=== PATIENT | female | born 1985 | race African-American/Black ===

== ENCOUNTER 2017-05-31 08:06 | Emergency (ER) | payer SELFPAY ==
[2017-05-31] MEDS ORDERED: cloNIDine HCl 0.1 MG TAB ONE (08:42)
[2017-05-31] MEDS ORDERED: FENTANYL CITR 100 MCG/2 ML ONE (08:43)
[2017-05-31 09:47] LABS: Urine Bacteria 20-50 /HPF (<20); Urine Culture Reflex Order NOT NEEDED; Urine RBC <5 /HPF (NONE SEEN)
[2017-05-31 09:48] LABS: Urine Mucus SLIGHT /HPF (NONE SEEN)
--- NOTE | 2017-05-31 10:11 | RAD REPORT ---
EXAM DESCRIPTION: CT - Stone Protocol - 05/31/2017 9:46 am CLINICAL HISTORY: Flank pain. COMPARISON: 09/15/2016 TECHNIQUE: Axial images were obtained without oral or IV contrast. Lack of contrast limits solid org an and vascular assessment. The [id number] spans the entirety of the system partially obscuring uppermost abdomen and lung bases. Coronal reformatted images were obtained and reviewed. All CT scans are performed using dose optimization technique as appropriate and may include automated exposure control or mA/KV adjustment according to patient size. FINDINGS: The lower lung chin are clear. Small hiatal hernia. Imaged portions of the liver and spleen show no suspicious findings on non-contrast imaging. The panc reas and adrenal glands are normal. No pathologic lymphadenopathy in the abdomen or pelvis. No urinary tract stones or obstructive uropathy. No bowel obstruction, free air, free fluid or abscess. Normal appendix noted. Chronic L5-S1 spondylolysis. Cervix appears dilated, similar to comparative study. IMPRESSION: No urinary tract stones or obstructive uropathy. Dilated cervix, similar to prior study. Correlation with clinical exam findings and/or direct visuali zation is suggested.
[2017-05-31 10:18] LABS: Urine Blood TRACE (NEG); Urine Glucose NEGATIVE (NEG); Urine Protein 2+ (NEG)
--- NOTE | 2017-05-31 10:34 | EDPHYS ---
Physician Documentation [facility] Name: Elsy Lux Age: 32 yrs Sex: Female : 1985 Arrival Date: 05/31/2017 Time: 08:07 Bed 13 Private MD: ED Physician Prince Harden HPI: 05/31 08:15 This 32 yrs old Black Female presents to ER via Unassigned with complaints of Abdominal snw Pain. 08:15 The patient presents with abdominal pain in the lower abdomen. Onset: The snw symptoms/episode began/occurred suddenly, 3 day(s) ago, and became persistent. The symptoms do not radiate. Associated signs and symptoms: none. The symptoms are described as crampy. Severity of pain: At its worst the pain was moderate. The patient has not experienced similar symptoms in the past. The patient has not recently seen a physician. lmp 6 years ago. 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 stated, "I haven't had a period for the last 6 years, I'm not sure why." rb1 Historical: - Allergies: 08:18 NKA; iw - Home Meds: 08:10 None [Active]; rb1 - PMHx: 08:18 Hypertension; Pre-Diabetes; iw - PSHx: 08:18 None; iw - Immunization history:: Adult Immunizations up to date. - Social history:: Smoking status: Patient/guardian denies using tobacco. ROS: 08:15 Constitutional: Negative for fever, chills, and weight loss, Eyes: Negative for injury, snw pain, redness, and discharge, ENT: Negative for injury, pain, and discharge, Neck: Negative for injury, pain, and swelling, Cardiovascular: Negative for chest pain, palpitations, and edema, Respiratory: Negative for shortness of breath, cough, wheezing, and pleuritic chest pain, Back: Negative for injury and pain, : Negative for injury, bleeding, discharge, and swelling, MS/Extremity: Negative for injury and deformity, Skin: Negative for injury, rash, and discoloration, Neuro: Negative for headache, weakness, numbness, tingling, and seizure. 08:15 Abdomen/GI: Positive for abdominal pain, abdominal cramps. Exam: 08:15 Head/Face: Normocephalic, atraumatic. Eyes: Pupils equal round and reactive to light, snw extra-ocular motions intact. Lids and lashes normal. Conjunctiva and sclera are non-icteric and not injected. Cornea within normal limits. Periorbital areas with no swelling, redness, or edema. ENT: Nares patent. No nasal discharge, no septal abnormalities noted. Tympanic membranes are normal and external auditory canals are clear. Oropharynx with no redness, swelling, or masses, exudates, or evidence of obstruction, uvula midline. Mucous membranes moist. Neck: Trachea midline, no thyromegaly or masses palpated, and no cervical lymphadenopathy. Supple, full range of motion without nuchal rigidity, or vertebral point tenderness. No Meningismus. Chest/axilla: Normal chest wall appearance and motion. Nontender with no deformity. No lesions are appreciated. Cardiovascular: Regular rate and rhythm with a normal S1 and S2. No gallops, murmurs, or rubs. Normal PMI, no JVD. No pulse deficits. Respiratory: Lungs have equal breath sounds bilaterally, clear to auscultation and percussion. No rales, rhonchi or wheezes noted. No increased work of breathing, no retractions or nasal flaring. Back: No spinal tenderness. No costovertebral tenderness. Full range of motion. Skin: Warm, dry with normal turgor. Normal color with no rashes, no lesions, and no evidence of cellulitis. MS/ Extremity: Pulses equal, no cyanosis. Neurovascular intact. Full, normal range of motion. Neuro: Awake and alert, GCS 15, oriented to person, place, time, and situation. Cranial nerves II-XII grossly intact. Motor strength 5/5 in all extremities. Sensory grossly intact. Cerebellar exam normal. Normal gait. Psych: Awake, alert, with orientation to person, place and time. Behavior, mood, and affect are within normal limits. 08:15 Constitutional: The patient appears anxious, obese, restless. 08:15 Abdomen/GI: Inspection: abdomen appears normal, Bowel sounds: normal, Palpation: moderate abdominal tenderness, in the suprapubic area. Vital Signs: 08:24 BP 184 / 122; Pulse 95; Resp 20; Temp 98.3(O); Pulse Ox 99% on R/A; Weight 104.33 kg; ph Height 5 ft. 4 in. (162.56 cm); Pain 10/10; 08:56 BP 176 / 98; Pulse 78; Resp 17; Pulse Ox 99% on R/A; rb1 09:36 BP 158 / 81; Pulse 82; Resp 19; Pulse Ox 99% on R/A; rb1 10:30 BP 158 / 81; Pulse 75; Resp 19; Pulse Ox 99% on R/A; rb1 11:08 BP 161 / 95; Pulse 79; Resp 18; Pulse Ox 99% on R/A; Pain 8/10; rb1 08:24 Body Mass Index 39.48 (104.33 kg, 162.56 cm) ph MDM: 08:14 Patient medically screened. snw 10:35 Data reviewed: vital signs, nurses notes. Data interpreted: Pulse oximetry: on room air snw is 99 %. Interpretation: normal. Counseling: I had a detailed discussion with the patient and/or guardian regarding: the historical points, exam findings, and any diagnostic results supporting the discharge/admit diagnosis, the presence of at least one elevated blood pressure reading (>120/80) during this emergency department visit, lab results, radiology results, the need for outpatient follow up, to return to the emergency department if symptoms worsen or persist or if there are any questions or concerns that arise at home. Special discussion: Based on the history and exam findings, there is no indication for further emergent testing or inpatient evaluation. 05/31 08:12 Order name: Urine Culture snw 05/31 08:12 Order name: Urine Microscopic Only; Complete Time: 09:59 snw 05/31 09:00 Order name: Urine Culture EDSC 05/31 09:03 Order name: Urine Dipstick--Ancillary (enter results); Complete Time: 10:30 em1 05/31 09:19 Order name: CT Stone Protocol; Complete Time: 10:16 snw 05/31 09:38 Order name: Urine --Ancillary (enter results); Complete Time: 10:30 bd 05/31 08:12 Order name: Urine Test (obtain specimen); Complete Time: 08:56 snw 05/31 08:12 Order name: Urine Dipstick-Ancillary (obtain specimen); Complete Time: 08:56 snw Administered Medications: 08:42 Drug: cloNIDine 0.2 mg Route: PO; rb1 09:37 Follow up: Response: No adverse reaction; Blood pressure is lowered rb1 08:50 Drug: fentaNYL (PF) 50 mcg {Note: Waited for the pt. to give a urine specimen.} Route: rb1 IM; Site: left gluteus; 09:37 Follow up: Response: No adverse reaction; Pain is unchanged, physician notified rb1 11:04 Drug: [place] 10 mg-325 mg 1 tabs Route: PO; rb1 11:20 Follow up: Response: No adverse reaction rb1 11:04 Drug: Bentyl 20 mg Route: PO; rb1 11:20 Follow up: Response: No adverse reaction; Pain is decreased rb1 11:05 Drug: Rocephin (cefTRIAXone) 1 grams Route: IM; Site: right gluteus; rb1 11:20 Follow up: Response: No adverse reaction rb1 Disposition: 18:07 Co-signature as Attending Physician, Prince Harden MD Available for consultation at ps1 all times. . Disposition: 05/31/17 10:33 Discharged to Home. Impression: Abdominal and pelvic pain, Urinary tract infection, site not specified. - Condition is Stable. - Discharge Instructions: Urinary Tract Infection, Abdominal Pain, Women, Hypertension, Yjda-am-Oasu. - Prescriptions for Bentyl 20 mg Oral Tablet - take 1 tablet by ORAL route every 6 hours As needed; 20 tablet. Diclofenac Sodium 75 mg Oral Tablet Sustained Release - take 1 tablet by ORAL route 2 times per day; 30 tablet. Augmentin 875- 125 mg Oral Tablet - take 1 tablet by ORAL route every 12 hours for 10 days; 20 tablet. - Work release form, Medication Reconciliation Form, Thank You Letter, Antibiotic Education, Prescription Opioid Use form. - Follow up: Private Physician; When: 2 - 3 days; Reason: If symptoms return, Recheck today's complaints, Continuance of care, Re-evaluation by your physician. Follow up: Emergency Department; When: As needed; Reason: Worsening of condition. Signatures: Dispatcher [employer] Dorothy Quinones, MARYELLEN-C SALES REPRESENTATIVE METALS-Csnw Jackie Villa RN RN Marsha Tavares RN RN [facility] Julius, [facility] Prince Harden MD MD ps1
--- NOTE | 2017-05-31 10:34 | ER ---
Nurse's Notes [facility] Name: Elsy Lux Age: 32 yrs Sex: Female : 1985 Arrival Date: 05/31/2017 Time: 08:07 Bed 13 Private MD: Diagnosis: Abdominal and pelvic pain;Urinary tract infection, site not specified Presentation: 05/31 08:15 Presenting complaint: Patient states: has had lower ad pain X 3 days, denies n/v/d, iw denies pain or burning with urination, feels like constant cramping, 10/10, no fever. Transition of care: patient was not received from another setting of care. Onset of symptoms was May 28, 2017. Initial Sepsis Screen: Does the patient meet any 2 criteria? No. Patient's initial sepsis screen is negative. Does the patient have a suspected source of infection? No. Patient initial sepsis screen negative. Care prior to arrival: None. 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 stated, "I haven't had a period for the last 6 years, I'm not sure why." rb1 Historical: - Allergies: 08:18 NKA; iw - Home Meds: 08:10 None [Active]; rb1 - PMHx: 08:18 Hypertension; Pre-Diabetes; iw - PSHx: 08:18 None; iw - Immunization history:: Adult Immunizations up to date. - Social history:: Smoking status: Patient/guardian denies using tobacco. Screenin:10 Abuse screen: Denies threats or abuse. Nutritional screening: No deficits noted. rb1 Tuberculosis screening: No symptoms or risk factors identified. Fall Risk None identified. Assessment: 08:10 General: Appears uncomfortable, obese, Behavior is calm, cooperative, Denies fever. rb1 Pain: Complains of pain in suprapubic area Pain currently is 10 out of 10 on a pain scale. Quality of pain is described as crampy, Pain began x 3 days ago. Neuro: Level of Consciousness is awake, alert, obeys commands, Oriented to person, place, time, situation. Cardiovascular: Capillary refill < 3 seconds is brisk in bilateral fingers. Respiratory: Airway is patent Respiratory effort is even, unlabored, Respiratory pattern is regular, symmetrical. GI: Bowel sounds present X 4 quads. Abd is soft Abdomen is tender to palpation in suprapubic area Reports vomiting, x 1 this morning. : No signs and/or symptoms were reported regarding the genitourinary system. Derm: Skin is dry, Skin is normal, Skin temperature is warm. Musculoskeletal: Range of motion: intact in all extremities. 08:48 Reassessment: No changes from previously documented assessment. Patient and/or family rb1 updated on plan of care and expected duration. Pain level reassessed. Patient is alert, oriented x 3, equal unlabored respirations, skin warm/dry/pink. 09:46 Reassessment: Patient appears in no apparent distress at this time. Patient and/or rb1 family updated on plan of care and expected duration. Pain level reassessed. Patient is alert, oriented x 3, equal unlabored respirations, skin warm/dry/pink. Provider notified that pt. is requesting pain medication. 10:33 Reassessment: Patient appears in no apparent distress at this time. No changes from rb1 previously documented assessment. 11:06 Reassessment: Patient appears in no apparent distress at this time. Patient and/or rb1 family updated on plan of care and expected duration. Pain level reassessed. Patient is alert, oriented x 3, equal unlabored respirations, skin warm/dry/pink. Discharge on hold due to Rocephin shot, monitoring pt. for ADR. Vital Signs: 08:24 BP 184 / 122; Pulse 95; Resp 20; Temp 98.3(O); Pulse Ox 99% on R/A; Weight 104.33 kg; ph Height 5 ft. 4 in. (162.56 cm); Pain 10/10; 08:56 BP 176 / 98; Pulse 78; Resp 17; Pulse Ox 99% on R/A; rb1 09:36 BP 158 / 81; Pulse 82; Resp 19; Pulse Ox 99% on R/A; rb1 10:30 BP 158 / 81; Pulse 75; Resp 19; Pulse Ox 99% on R/A; rb1 11:08 BP 161 / 95; Pulse 79; Resp 18; Pulse Ox 99% on R/A; Pain 8/10; rb1 08:24 Body Mass Index 39.48 (104.33 kg, 162.56 cm) ph ED Course: 08:07 Patient arrived in ED. as 08:10 Patient has correct armband on for positive identification. Bed in low position. Call rb1 light in reach. Side rails up X 1. Pulse ox on. NIBP on. Warm blanket given. 08:10 Arm band placed on right wrist. rb1 08:11 Dorothy Cano FNP-C [facility]. snw 08:11 Prince Harden MD is Attending Physician. snw 08:18 Triage completed. iw 08:22 Marsha Tavares, RN is Primary Nurse. rb1 09:45 CT completed. Patient tolerated procedure well. Patient moved to CT via wheelchair. Patient moved back from CT. 09:45 CT Stone Protocol In Process Unspecified. EDMS 11:20 No provider procedures requiring assistance completed. Patient did not have IV access rb1 during this emergency room visit. Administered Medications: 08:42 Drug: cloNIDine 0.2 mg Route: PO; rb1 09:37 Follow up: Response: No adverse reaction; Blood pressure is lowered rb1 08:50 Drug: fentaNYL (PF) 50 mcg {Note: Waited for the pt. to give a urine specimen.} Route: rb1 IM; Site: left gluteus; 09:37 Follow up: Response: No adverse reaction; Pain is unchanged, physician notified rb1 11:04 Drug: [place] 10 mg-325 mg 1 tabs Route: PO; rb1 11:20 Follow up: Response: No adverse reaction rb1 11:04 Drug: Bentyl 20 mg Route: PO; rb1 11:20 Follow up: Response: No adverse reaction; Pain is decreased rb1 11:05 Drug: Rocephin (cefTRIAXone) 1 grams Route: IM; Site: right gluteus; rb1 11:20 Follow up: Response: No adverse reaction rb1 Outcome: 10:33 Discharge ordered by . snw 11:22 Patient left the ED. rb1 11:22 Discharged to home ambulatory, with family. rb1 11:22 Condition: stable 11:22 Discharge instructions given to patient, Instructed on discharge instructions, follow up and referral plans. medication usage, Demonstrated understanding of instructions, follow-up care, medications, Prescriptions given X 3. Signatures: Dispatcher [employer] EDMS Dorothy Cano FNP-C BIOLOGICAL TECHNICAL OFFICER-Csnw China Herzog Amelia as Williams, Irene, RN RN Sandra Finn RN RN Marsha Tavares RN RN rb1 [facility] [place] [facility] Corrections: (The following items were deleted from the chart) 08:29 08:24 BP 184 / 122; Pulse 95bpm; Resp 20bpm; Pulse Ox 99% RA; 104.33 kg; Height 5 ft. 4 ph in.; BMI: 39.4; Pain 10/10; ph 11:14 08:58 Reassessment: No changes from previously documented assessment. Patient and/or rb1 family updated on plan of care and expected duration. Pain level reassessed. Patient is alert, oriented x 3, equal unlabored respirations, skin warm/dry/pink. rb1 11:14 11:12 Reassessment: Patient appears in no apparent distress at this time. Patient rb1 and/or family updated on plan of care and expected duration. Pain level reassessed. Patient is alert, oriented x 3, equal unlabored respirations, skin warm/dry/pink. Discharge on hold due to Rocephin shot, monitoring pt. for ADR. [facility] 11:38 11:37 Patient left the ED. 5 [facility]
[2017-05-31] MEDS ORDERED: CEFTRIAXONE 1000 MG/VIAL ONE (11:02)
[2017-05-31] MEDS ORDERED: DICYCLOMINE HCL 10 MG CAP ONE (11:02)
[2017-05-31] MEDS ORDERED: HYDROCODONE/APAP 10/325 TAB ONE (11:02)
[2017-05-31 11:48] VITALS: O2SAT 99
[2017-05-31 11:50] VITALS: TEMP 98.3
[2017-05-31 11:54] VITALS: BP 161/95
== END 2017-05-31 11:37 | disposition home or self-care (01) ==
LOC: ER 08:06
DX: N39.0 Urinary tract infection, site not specified (principal); I10 Essential (primary) hypertension
CPT/HCPCS: 74176; 76377; 81003; 81015; 81025; 87086; 87088; 96372; 99284; J3010

== ENCOUNTER 2017-06-01 10:48 | Emergency (ER) | payer OTHER, SELFPAY ==
[2017-06-01 12:26] LABS: Urine Blood TRACE (NEG); Urine Glucose NEGATIVE (NEG); Urine Protein 2+ (NEG); Urine pH 6.5 (5.0-7.0)
[2017-06-01] MEDS ORDERED: ONDANSETRON 4 MG/2 ML VIAL ONE ×2 (14:23→15:41)
[2017-06-01] MEDS ORDERED: KETOROLAC 30 MG/ML INJ ONE (14:23)
[2017-06-01] MEDS ORDERED: NA CHLORIDE 0.9% 1,000 ML ONE (14:23)
[2017-06-01] MEDS ORDERED: MORPHINE 10 MG/ML VIAL ONE (15:41)
[2017-06-01 16:52] LABS: Bicarbonate 25 mEq/L (21-31); Glucose Level 131 mg/dL (65-120); Lipase 46 U/L (22-51); Potassium 3.4 mEq/L (3.6-5.0); Sodium Level 136 mEq/L (135-145)
[2017-06-01 16:55] LABS: ALT/SGPT 26 IU/L (10-60); AST/SGOT 29 IU/L (10-42); Albumin 4.3 g/dL (3.2-5.5); Alkaline Phosphatase 62 IU/L (42-121); BUN Blood Urea Nitrogen 10 mg/dL (6-20); Bilirubin Total 0.2 mg/dL (0.3-1.2)
[2017-06-01 17:26] LABS: Absolute Lymphocytes (CBC) 1.9 K/uL (0.7-4.9); Absolute Monocytes 0.7 K/uL (0.1-1.3); Absolute Neutrophil 10.9 K/uL (1.8-8.0); Basophils % 0.4 % (0-1.3); Hematocrit 34.7 % (36.0-45.0); Lymphocytes % 13.8 % (15.3-44.8); MCV 74.1 fL (80-100); MPV 7.9 fL (7.6-11.3); Monocytes % 5.2 % (3.3-12.3); RBC Red Blood Cell Count 4.68 M/uL (3.86-4.86)
--- NOTE | 2017-06-01 18:14 | EDPHYS ---
Physician Documentation [facility] Name: Elsy Lux Age: 32 yrs Sex: Female : 1985 Arrival Date: 06/01/2017 Time: 10:51 Bed 28 Private MD: ED Physician Prince Harden HPI: 06/01 18:16 This 32 yrs old Black Female presents to ER via Ambulatory with complaints of Abdominal ps1 Pain, Vomiting. 18:16 The patient presents to the emergency department with nausea, vomiting. Onset: The ps1 symptoms/episode began/occurred this week. Possible causes: antibiotics, penicillin, amoxicillin. Associated signs and symptoms: Pertinent positives: abdominal pain, nausea, Pertinent negatives: fever, vomiting. Severity of symptoms: At their worst the symptoms were moderate in the emergency department the symptoms have improved. The patient has experienced a previous episode. The patient has been recently seen at the [facility] Emergency Department, yesterday. CT performed and demonstrated an enlarged cervix. referral to [facility]. Given augmentin. Now worsening abd pain, nausea, vomting. . 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 - Social history:: Smoking status: Patient/guardian denies using tobacco, never smoked. ROS: 18:16 Constitutional: Negative for fever, chills, and weight loss, Eyes: Negative for injury, ps1 pain, redness, and discharge, Cardiovascular: Negative for chest pain, palpitations, and edema, Respiratory: Negative for shortness of breath, cough, wheezing, and pleuritic chest pain. 18:16 Back: Negative for injury and pain, MS/Extremity: Negative for injury and deformity, Skin: Negative for injury, rash, and discoloration, Neuro: Negative for headache, weakness, numbness, tingling, and seizure. 18:16 Abdomen/GI: Positive for abdominal pain, nausea and vomiting. Exam: 18:16 Constitutional: This is a well developed, well nourished patient who is awake, alert, ps1 and in no acute distress. Head/Face: Normocephalic, atraumatic. Chest/axilla: Normal chest wall appearance and motion. Nontender with no deformity. No lesions are appreciated. Cardiovascular: Regular rate and rhythm. No gallops, murmurs, or rubs. Normal PMI, no JVD. No pulse deficits. Respiratory: Lungs have equal breath sounds bilaterally, clear to auscultation and percussion. No rales, rhonchi or wheezes noted. No increased work of breathing, no retractions or nasal flaring. Abdomen/GI: Soft, non-tender, with normal bowel sounds. No distension or tympany. No guarding or rebound. No evidence of tenderness throughout. Back: No spinal tenderness. No costovertebral tenderness. Full range of motion. MS/ Extremity: Pulses equal, no cyanosis. Neurovascular intact. Full, normal range of motion. Neuro: Awake and alert, GCS 15, oriented to person, place, time, and situation. Cranial nerves II-XII grossly intact. Sensory grossly intact. Psych: Awake, alert, with orientation to person, place and time. Behavior, mood, and affect are within normal limits. Vital Signs: 11:07 BP 182 / 112; Pulse 80; Resp 18; Temp 98.7(TE); Pulse Ox 97% on R/A; Weight 104.33 kg; hj Height 5 ft. 4 in. (162.56 cm); Pain 10/10; 14:36 BP 177 / 97; Pulse 79; Resp 20; Pulse Ox 95% on R/A; tl3 16:03 BP 148 / 84; Pulse 72; Resp 18; Pulse Ox 99% on R/A; tl3 16:47 BP 147 / 76; Pulse 78; Resp 18; Pulse Ox 100% ; tl3 17:51 BP 146 / 71; Pulse 75; Resp 18; Pulse Ox 100% on R/A; tl3 11:07 Body Mass Index 39.48 (104.33 kg, 162.56 cm) hj MDM: 14:04 Patient medically screened. ps1 18:16 Data reviewed: vital signs, nurses notes, lab test result(s), CBC, white blood cell ps1 count. ED course: pain and symptoms improved after medications. Will change medications to cipro/flagyl and dc with zofran. Stable. . 06/01 11:38 Order name: Urine Dipstick--Ancillary (enter results); Complete Time: 12:34 mw2 06/01 11:38 Order name: Urine --Ancillary (enter results); Complete Time: 12:34 mw2 18 15:39 Order name: CBC with Diff; Complete Time: 17:43 ps1 06/01 15:39 Order name: CMP; Complete Time: 17:06 ps1 06/01 15:39 Order name: Lipase; Complete Time: 17:06 ps1 Administered Medications: 14:15 Drug: NS 0.9% 1000 ml Route: IV; Rate: 1 bolus; Infused Over: 1 hrs; Site: right tl3 antecubital; Delivery: Primary tubing; 16:08 Follow up: IV Status: Completed infusion; IV Intake: 1000ml tl3 14:18 Drug: Zofran 4 mg Route: IVP; Infused Over: 2 mins; Site: right antecubital; tl3 16:49 Follow up: Response: No adverse reaction; Nausea is decreased tl3 14:20 Drug: TORadol 30 mg Route: IVP; Infused Over: 3 mins; Site: right antecubital; tl3 15:00 Follow up: Response: No adverse reaction; Pain is unchanged, physician notified tl3 16:07 Drug: morphine 4 mg Route: IVP; Infused Over: 3 mins; Site: right antecubital; tl3 16:48 Follow up: Response: No adverse reaction; Marked relief of symptoms; Pain is decreased tl3 16:07 Drug: Zofran 4 mg Route: IVP; Infused Over: 2 mins; Site: right antecubital; tl3 16:48 Follow up: Response: No adverse reaction tl3 Disposition: 06/01/17 18:13 Discharged to Home. Impression: Abdominal and pelvic pain, Nausea and vomiting. - Condition is Stable. - Prescriptions for Bentyl 20 mg Oral Tablet - take 1 tablet by ORAL route every 6 hours As needed; 20 tablet. Zofran 4 mg Oral Tablet - take 1 tablet by ORAL route every 12 hours As needed; 20 tablet. Cipro 500 mg Oral Tablet - take 1 tablet by ORAL route every 12 hours for 10 days; 20 tablet. Flagyl 500 mg Oral Tablet - take 1 tablet by ORAL route every 12 hours for 7 days; 14 tablet. - Medication Reconciliation Form, Thank You Letter, Antibiotic Education, Prescription Opioid Use form. - Follow up: Darcie Davis MD; When: 48 Hours; Reason: Re-evaluation by your physician. Follow up: Emergency Department; When: As needed; Reason: Fever > 102 F, Trouble breathing, Worsening of condition. - Problem is an ongoing problem. - Symptoms have worsened. Signatures: Dispatcher [employer] EDMS Dorothy Cano, SPLICER OPERATOR-C SPLICER OPERATOR-Csnw Serafin Teresa, RN RN Prince Coreas MD MD ps1 Glory Kim RN RN tl3
--- NOTE | 2017-06-01 18:14 | ER ---
Nurse's Notes [facility] Name: Elsy Lux Age: 32 yrs Sex: Female : 1985 Arrival Date: 06/01/2017 Time: 10:51 Bed 28 Private MD: Diagnosis: Abdominal and pelvic pain;Nausea and vomiting Presentation: 06/01 11:00 Presenting complaint: Patient states: was here yesterday, for abdominal pain and was hj D/C'd with Rx, but not able to take it and hold it down;. Transition of care: patient was not received from another setting of care. Onset of symptoms was June 01, 2017. Care prior to arrival: None. 11:00 Method Of Arrival: Ambulatory 11:00 Acuity: SOBIA 3 hj 18:43 Initial Sepsis Screen: Does the patient meet any 2 criteria? No. Patient's initial tl3 sepsis screen is negative. Does the patient have a suspected source of infection? No. Patient's initial sepsis screen is negative. Triage Assessment: 11:06 General: Appears in no apparent distress. uncomfortable, Behavior is calm, cooperative, hj appropriate for age. Pain: Complains of pain in abdomen. GI: Reports lower abdominal pain. 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 - Social history:: Smoking status: Patient/guardian denies using tobacco, never smoked. Screenin:56 Abuse screen: Denies threats or abuse. Nutritional screening: No deficits noted. tl3 Tuberculosis screening: No symptoms or risk factors identified. Fall Risk None identified. Assessment: 11:06 GI: Bowel sounds Abd is soft Abdomen is tender to palpation. hj 13:56 General: Appears distressed, uncomfortable, obese, well groomed, well developed, well tl3 nourished, Behavior is cooperative, appropriate for age, anxious, restless. Pain: Complains of pain in suprapubic Pain currently is 10 out of 10 on a pain scale. Neuro: Level of Consciousness is awake, alert, obeys commands, Oriented to person, place, time, situation, Appropriate for age. Cardiovascular: Heart tones S1 S2 present Capillary refill < 3 seconds in bilateral fingers. Respiratory: Airway is patent Trachea midline Respiratory effort is even, unlabored, Respiratory pattern is regular, symmetrical, Breath sounds are clear bilaterally. GI: Bowel sounds present X 4 quads. Abd is soft Abdomen is tender to palpation in suprapubic area. : No signs and/or symptoms were reported regarding the genitourinary system. EENT: No signs and/or symptoms were reported regarding the EENT system. Derm: No signs and/or symptoms reported regarding the dermatologic system. Musculoskeletal: No signs and/or symptoms reported regarding the musculoskeletal system. 15:34 Reassessment: Patient and/or family updated on plan of care and expected duration. Pain tl3 level reassessed. Patient is alert, oriented x 3, equal unlabored respirations, skin warm/dry/pink. pt resting. 16:03 Reassessment: No changes from previously documented assessment. Patient and/or family tl3 updated on plan of care and expected duration. Pain level reassessed. Patient is alert, oriented x 3, equal unlabored respirations, skin warm/dry/pink. pain had returned, MD notified. 16:47 Reassessment: Patient appears in no apparent distress at this time. No changes from tl3 previously documented assessment. Patient and/or family updated on plan of care and expected duration. Pain level reassessed. Patient is alert, oriented x 3, equal unlabored respirations, skin warm/dry/pink. pts pain is now at a 2 out of 10. 17:51 Reassessment: Patient appears in no apparent distress at this time. No changes from tl3 previously documented assessment. Patient and/or family updated on plan of care and expected duration. Pain level reassessed. Patient is alert, oriented x 3, equal unlabored respirations, skin warm/dry/pink. awaiting lab results. 18:41 Reassessment: No changes from previously documented assessment. Patient and/or family tl3 updated on plan of care and expected duration. Pain level reassessed. Patient is alert, oriented x 3, equal unlabored respirations, skin warm/dry/pink. Vital Signs: 11:07 BP 182 / 112; Pulse 80; Resp 18; Temp 98.7(TE); Pulse Ox 97% on R/A; Weight 104.33 kg; hj Height 5 ft. 4 in. (162.56 cm); Pain 10/10; 14:36 BP 177 / 97; Pulse 79; Resp 20; Pulse Ox 95% on R/A; tl3 16:03 BP 148 / 84; Pulse 72; Resp 18; Pulse Ox 99% on R/A; tl3 16:47 BP 147 / 76; Pulse 78; Resp 18; Pulse Ox 100% ; tl3 17:51 BP 146 / 71; Pulse 75; Resp 18; Pulse Ox 100% on R/A; tl3 11:07 Body Mass Index 39.48 (104.33 kg, 162.56 cm) hj ED Course: 10:51 Patient arrived in ED. mr 11:06 Triage completed. hj 11:06 Arm band placed on left wrist. hj 11:27 Urine collected: clean catch specimen, cloudy, kade colored. dh3 13:19 Prince Harden MD is Attending Physician. ps1 13:41 Glory Kim RN is Primary Nurse. tl3 13:56 Appears restless. Awaiting ED provider evaluation. tl3 13:56 Patient has correct armband on for positive identification. Placed in gown. Bed in low tl3 position. Call light in reach. Side rails up X2. Adult w/ patient. Warm blanket given. Pillow given. 13:56 No provider procedures requiring assistance completed. Inserted saline lock: 20 gauge tl3 in right antecubital area, using aseptic technique. Blood collected. 18:12 Darcie Davis MD is Referral Physician. ps1 18:41 IV discontinued, intact, bleeding controlled, No redness/swelling at site. Pressure tl3 dressing applied. Administered Medications: 14:15 Drug: NS 0.9% 1000 ml Route: IV; Rate: 1 bolus; Infused Over: 1 hrs; Site: right tl3 antecubital; Delivery: Primary tubing; 16:08 Follow up: IV Status: Completed infusion; IV Intake: 1000ml tl3 14:18 Drug: Zofran 4 mg Route: IVP; Infused Over: 2 mins; Site: right antecubital; tl3 16:49 Follow up: Response: No adverse reaction; Nausea is decreased tl3 14:20 Drug: TORadol 30 mg Route: IVP; Infused Over: 3 mins; Site: right antecubital; tl3 15:00 Follow up: Response: No adverse reaction; Pain is unchanged, physician notified tl3 16:07 Drug: morphine 4 mg Route: IVP; Infused Over: 3 mins; Site: right antecubital; tl3 16:48 Follow up: Response: No adverse reaction; Marked relief of symptoms; Pain is decreased tl3 16:07 Drug: Zofran 4 mg Route: IVP; Infused Over: 2 mins; Site: right antecubital; tl3 16:48 Follow up: Response: No adverse reaction tl3 Intake: 16:08 IV: 1000ml; Total: 1000ml. tl3 Outcome: 18:13 Discharge ordered by . ps1 18:41 Discharged to home ambulatory. tl3 18:41 Condition: stable 18:41 Discharge instructions given to patient, Instructed on discharge instructions, follow up and referral plans. no drinking with medication, medication usage, Demonstrated understanding of instructions, follow-up care, medications, Prescriptions given X 4, instructed to stop antibiotics at home 18:45 Patient left the ED. tl3 Signatures: Genesis Tao Henry, RN RN Dolores Gan 3 Prince Harden MD MD ps1 Glory Kim RN RN tl3
[2017-06-01 18:59] VITALS: TEMP 98.7
[2017-06-01 19:03] VITALS: O2SAT 100
[2017-06-01 19:04] VITALS: BP 146/71
== END 2017-06-01 18:45 | disposition home or self-care (01) ==
LOC: ER 10:48
DX: R10.2 Pelvic and perineal pain (principal); I10 Essential (primary) hypertension
CPT/HCPCS: 36415; 80053; 81003; 81025; 83690; 85025; 96361; 96374; 96375; 99284; J2405; J7030

== ENCOUNTER 2017-06-03 06:25 | Emergency (ER) | payer OTHER ==
[2017-06-03] MEDS ORDERED: MORPHINE 4 MG/ML SYR ONE (07:36)
[2017-06-03] MEDS ORDERED: ONDANSETRON 4 MG/2 ML VIAL ONE (07:36)
[2017-06-03 07:45] LABS: Absolute Lymphocytes (CBC) 1.7 K/uL (0.7-4.9); Absolute Monocytes 0.9 K/uL (0.1-1.3); Absolute Neutrophil 10.7 K/uL (1.8-8.0); Basophils % 0.5 % (0-1.3); Eosinophils % 1.3 % (0-4.4); Hematocrit 33.4 % (36.0-45.0); Lymphocytes % 12.9 % (15.3-44.8); MCH 23.9 pg (27.0-35.0); MCV 74.4 fL (80-100); Monocytes % 6.5 % (3.3-12.3); RBC Red Blood Cell Count 4.49 M/uL (3.86-4.86)
[2017-06-03] MEDS ORDERED: POTASSIUM CL SA 10 MEQ TAB PO ONE (09:08)
--- NOTE | 2017-06-03 09:20 | RAD REPORT ---
EXAM DESCRIPTION: US - Transvaginal Study Probe - 06/03/2017 8:44 am CLINICAL HISTORY: Vaginal bleeding COMPARISON: 05/31/2017 FINDINGS: The uterus is normal in size, shape and echotexture. The uterus measures 7.2 x 5.7 x 5.5 c m. Endometrial stripe is thickened to 2.5 cm in the cervical canal is dilated and filled with heterogeno us nonvascular material. Cervical canal is dilated 1.7 cm. Blood products were noted on the transvagi nal probe. Both ovaries are normal in size, shape and echotexture. The right ovary measures 3.1 x 2.6 x 2.1 cm. The left ovary measures 3.8 x 2.3 x 2.1 cm. No ovarian or parovarian lesions. No adnexal masses. Normal Doppler blood flow was demonstrated to both ovaries. IMPRESSION: Dilatation of the endometrial canal and cervical canal was noted with heterogenous nonva scular material favored to represent blood product. Hematometrocolpos is the favored diagnosis.
[2017-06-03 09:51] LABS: Urine Blood 3+ (NEG); Urine Glucose NEGATIVE (NEG); Urine Protein 2+ (NEG); Urine Specific Gravity 1.025 (1.005-1.030)
--- NOTE | 2017-06-03 10:09 | EDPHYS ---
Physician Documentation [facility] Name: Elsy Lux Age: 32 yrs Sex: Female : 1985 Arrival Date: 06/03/2017 Time: 06:28 Bed 16 Private MD: ED Physician Waylon Rodriguez HPI: 06/03 10:02 This 32 yrs old Black Female presents to ER via Wheelchair with complaints of Abdominal jr8 Pain, Vaginal Bleeding. 10:02 The patient presents with abdominal pain in the lower abdomen. Onset: The jr8 symptoms/episode began/occurred suddenly, 4 day(s) ago. The symptoms do not radiate. Associated signs and symptoms: Pertinent positives: vaginal bleeding. The symptoms are described as crampy. Modifying factors: The symptoms are alleviated by nothing, the symptoms are aggravated by nothing. Severity of pain: At its worst the pain was moderate in the emergency department the pain is unchanged. The patient has not experienced similar symptoms in the past. The patient has been recently seen by a physician:. Patient has been seen the past couple of days in the ED. Had CT scan and blood work done for lower abdominal/pelvic pain. Denies bleeding at that time. Today started with menstrual like bleeding. Has been amenorrheic for 6 years . 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 - Social history:: Smoking status: Patient/guardian denies using tobacco. ROS: 10:02 Eyes: Negative for injury, pain, redness, and discharge, ENT: Negative for injury, jr8 pain, and discharge, Neck: Negative for injury, pain, and swelling, Cardiovascular: Negative for chest pain, palpitations, and edema, Respiratory: Negative for shortness of breath, cough, wheezing, and pleuritic chest pain, Back: Negative for injury and pain, MS/Extremity: Negative for injury and deformity, Skin: Negative for injury, rash, and discoloration, Neuro: Negative for headache, weakness, numbness, tingling, and seizure. 10:02 Abdomen/GI: Positive for abdominal pain, nausea, Negative for vomiting, diarrhea. 10:02 : Positive for pelvic pain, vaginal bleeding, menstrual abnormality, Negative for flank pain, vaginal discharge, vaginal itching. Exam: 10:02 Eyes: Pupils equal round and reactive to light, extra-ocular motions intact. Lids and jr8 lashes normal. Conjunctiva and sclera are non-icteric and not injected. Cornea within normal limits. Periorbital areas with no swelling, redness, or edema. ENT: Nares patent. No nasal discharge, no septal abnormalities noted. Tympanic membranes are normal and external auditory canals are clear. Oropharynx with no redness, swelling, or masses, exudates, or evidence of obstruction, uvula midline. Mucous membranes moist. Neck: Trachea midline, no thyromegaly or masses palpated, and no cervical lymphadenopathy. Supple, full range of motion without nuchal rigidity, or vertebral point tenderness. No Meningismus. Cardiovascular: Regular rate and rhythm with a normal S1 and S2. No gallops, murmurs, or rubs. Normal PMI, no JVD. No pulse deficits. Respiratory: Lungs have equal breath sounds bilaterally, clear to auscultation and percussion. No rales, rhonchi or wheezes noted. No increased work of breathing, no retractions or nasal flaring. Back: No spinal tenderness. No costovertebral tenderness. Full range of motion. Skin: Warm, dry with normal turgor. Normal color with no rashes, no lesions, and no evidence of cellulitis. MS/ Extremity: Pulses equal, no cyanosis. Neurovascular intact. Full, normal range of motion. Neuro: Awake and alert, GCS 15, oriented to person, place, time, and situation. Cranial nerves II-XII grossly intact. Motor strength 5/5 in all extremities. Sensory grossly intact. Cerebellar exam normal. Normal gait. 10:02 Abdomen/GI: Inspection: abdomen appears normal, Bowel sounds: active, all quadrants, Palpation: soft, in all quadrants, mild abdominal tenderness, in the lower abdominal/pelvic region , mass, is not appreciated, rebound tenderness, is not appreciated, voluntary guarding, is not appreciated, involuntary guarding, is not appreciated, no appreciated organomegaly, Indicators: McBurney's point is not tender, Hernandez's sign is negative, Rovsing's sign is negative, Liver: no appreciated palpable abnormalities, tenderness, is not appreciated. Vital Signs: 06:58 BP 121 / 82; Pulse 102; Resp 18; Temp 99.1(O); Pulse Ox 98% on R/A; Weight 99.79 kg; lp1 Pain 9/10; 07:30 BP 126 / 80; Pulse 82; Resp 16; Pulse Ox 100% on R/A; Pain 6/10; hb 08:30 BP 128 / 78; Pulse 80; Resp 16; Pulse Ox 100% on R/A; hb 09:30 BP 132 / 82; Pulse 84; Resp 16; Pulse Ox 100% on R/A; hb MDM: 07:00 Patient medically screened. [facility] 10:02 Data reviewed: vital signs, nurses notes, lab test result(s), radiologic studies, [facility] ultrasound, and as a result, I will discharge patient. Data interpreted: Pulse oximetry: on room air is 100 %. Interpretation: normal. Counseling: I had a detailed discussion with the patient and/or guardian regarding: the historical points, exam findings, and any diagnostic results supporting the discharge/admit diagnosis, lab results, radiology results, the need for outpatient follow up, an OB/Gyne specialist, to return to the emergency department if symptoms worsen or persist or if there are any questions or concerns that arise at home. Physician consultation: Jorje Sherwood MD was called at 10:06, was contacted at 10:06, regarding consult, patient's condition, Recommends starting on control and doing 2 pills a day for the next 10 days then 1 pill after that for the next few weeks . 06/03 07:01 Order name: CBC with Diff; Complete Time: 07:54 [facility] 06/03 07:01 Order name: Basic Metabolic Panel; Complete Time: 08:50 [facility] 06/03 07:01 Order name: US Transvaginal Study (Probe); Complete Time: 09:42 [facility] 04/20 07:38 Order name: Urine Dipstick--Ancillary (enter results); Complete Time: 09:51 bd 06/03 07:38 Order name: Urine --Ancillary (enter results); Complete Time: 09:51 bd 06/03 07:01 Order name: IV; Complete Time: 07:43 jr8 06/03 07:01 Order name: Urine Dipstick-Ancillary (obtain specimen); Complete Time: 07:43 jr8 Administered Medications: 07:38 Drug: Zofran 4 mg Route: IVP; Site: left antecubital; hb 08:05 Follow up: Response: No adverse reaction; Pain is decreased hb 07:38 Drug: morphine 4 mg Route: IVP; Site: left antecubital; hb 08:05 Follow up: Response: No adverse reaction hb 09:10 Drug: Potassium Chloride 40 mEq Route: PO; hb 09:40 Follow up: Response: No adverse reaction hb Disposition: 06/03/17 10:08 Discharged to Home. Impression: Abnormal uterine and vaginal bleeding, unspecified, Hematocolpos. - Condition is Stable. - Discharge Instructions: Abnormal Uterine Bleeding. - Prescriptions for Ortho- Cyclen (28) 0.25-35 mg-mcg Oral tablet - take 2 tablet by ORAL route once daily for 10 days then 1 tablet once daily for 3 weeks; 2 packet. - Medication Reconciliation Form, Thank You Letter, Antibiotic Education, Prescription Opioid Use form. - Follow up: Darcie Davis MD; When: 06/07/2017. - Problem is new. - Symptoms have improved. Addendum: 06/07/2017 21:30 Co-signature as Attending Physician, Waylon Rodriguez MD. g s Signatures: Dispatcher [employer] Linsey Schofield RN Sierra Montenegro RN RN lp1 Bull Mcclain PA PA jr8 Joslyn Ervin RN RN hb Starr, Gregory, MD MD
--- NOTE | 2017-06-03 10:09 | ER ---
Nurse's Notes [facility] Name: Elsy Lux Age: 32 yrs Sex: Female : 1985 Arrival Date: 06/03/2017 Time: 06:28 Bed 16 Private MD: Diagnosis: Abnormal uterine and vaginal bleeding, unspecified;Hematocolpos Presentation: 06/03 06:49 Presenting complaint: Patient states: States this is third visit for same complaint, lp1 pain to lower abdomen that has not been relieved with prescribed medications; Diagnosed with dilated cervix from previous visit and instructed to follow-up, has appt with Dr. Davis on Tuesday. Transition of care: patient was not received from another setting of care. Onset of symptoms was June 03, 2017. Initial Sepsis Screen: Does the patient meet any 2 criteria? No. Patient's initial sepsis screen is negative. Does the patient have a suspected source of infection? No. Patient's initial sepsis screen is negative. Care prior to arrival: None. 06:49 Method Of Arrival: Wheelchair lp1 06:49 Acuity: SOBIA 3 lp1 Triage Assessment: 06:59 General: Appears uncomfortable, Behavior is cooperative. Pain: Complains of pain in lp1 suprapubic area Pain currently is 9 out of 10 on a pain scale. Quality of pain is described as sharp. EENT: No signs and/or symptoms were reported regarding the EENT system. Neuro: Level of Consciousness is awake, alert, obeys commands. Cardiovascular: Patient's skin is warm and dry. Respiratory: Respiratory effort is even, unlabored. GI: Abdomen is non-distended, Bowel sounds present X 4 quads. Abdomen is tender to palpation in suprapubic area. : Reports vaginal bleeding that is. Derm: Skin is intact, Skin is dry, Skin is normal. Musculoskeletal: Circulation, motion, and sensation intact. 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 - Social history:: Smoking status: Patient/guardian denies using tobacco. Screenin:01 Abuse screen: Denies threats or abuse. Denies injuries from another. Nutritional lp1 screening: No deficits noted. Tuberculosis screening: No symptoms or risk factors identified. Fall Risk None identified. Assessment: 07:30 General: Appears in no apparent distress. uncomfortable, Behavior is calm, cooperative. hb Pain: Pain currently is 6 out of 10 on a pain scale. Neuro: Level of Consciousness is awake, alert, obeys commands, Oriented to person, place, time, situation. Cardiovascular: Capillary refill < 3 seconds Patient's skin is warm and dry. Respiratory: Airway is patent Trachea midline Respiratory effort is even, unlabored, Respiratory pattern is regular, symmetrical. GI: No signs and/or symptoms were reported involving the gastrointestinal system. : Reports cramping, pain vaginal bleeding that is. EENT: No signs and/or symptoms were reported regarding the EENT system. Derm: No signs and/or symptoms reported regarding the dermatologic system. Skin is intact, is healthy with good turgor. Musculoskeletal: No signs and/or symptoms reported regarding the musculoskeletal system. 09:15 Reassessment: Patient appears in no apparent distress at this time. Patient and/or hb family updated on plan of care and expected duration. Pain level reassessed. Patient is alert, oriented x 3, equal unlabored respirations, skin warm/dry/pink. 10:00 Reassessment: Patient appears in no apparent distress at this time. No changes from previously documented assessment. Patient and/or family updated on plan of care and expected duration. Pain level reassessed. Patient is alert, oriented x 3, equal unlabored respirations, skin warm/dry/pink. Vital Signs: 06:58 BP 121 / 82; Pulse 102; Resp 18; Temp 99.1(O); Pulse Ox 98% on R/A; Weight 99.79 kg; lp1 Pain 9/10; 07:30 BP 126 / 80; Pulse 82; Resp 16; Pulse Ox 100% on R/A; Pain 6/10; hb 08:30 BP 128 / 78; Pulse 80; Resp 16; Pulse Ox 100% on R/A; hb 09:30 BP 132 / 82; Pulse 84; Resp 16; Pulse Ox 100% on R/A; hb ED Course: 06:28 Patient arrived in ED. rg2 06:53 Triage completed. lp1 06:54 Arm band placed on right wrist. lp1 07:00 Bull Mcclain PA is PHCP. jr8 07:00 Waylon Rodriguez MD is Attending Physician. jr8 07:02 Patient has correct armband on for positive identification. Pulse ox on. NIBP on. lp1 07:22 Joslyn Ervin RN is Primary Nurse. hb 07:30 Inserted saline lock: 20 gauge in left antecubital area, using aseptic technique. Blood hb collected. 07:40 Patient taken to ultrasound. aa4 08:12 US Transvaginal Study (Probe) In Process Unspecified. EDMS 09:07 Ultrasound completed. Patient moved back from ultrasound. aa4 10:07 Darcie Davis MD is Referral Physician. jr8 10:29 No provider procedures requiring assistance completed. IV discontinued, intact, aj bleeding controlled, No redness/swelling at site. Pressure dressing applied. Administered Medications: 07:38 Drug: Zofran 4 mg Route: IVP; Site: left antecubital; hb 08:05 Follow up: Response: No adverse reaction; Pain is decreased hb 07:38 Drug: morphine 4 mg Route: IVP; Site: left antecubital; hb 08:05 Follow up: Response: No adverse reaction hb 09:10 Drug: Potassium Chloride 40 mEq Route: PO; hb 09:40 Follow up: Response: No adverse reaction hb Outcome: 10:08 Discharge ordered by . jr8 10:29 Discharged to home ambulatory. aj 10:29 Condition: good 10:29 Discharge instructions given to patient, family, Instructed on discharge instructions, follow up and referral plans. medication usage, Demonstrated understanding of instructions, follow-up care, medications, Prescriptions given X 1. 10:31 Patient left the ED. aj Signatures: Dispatcher [employer] EDOH Cristel Metzger rg2 Linsey Mendiola RN RN aj Frazier, Amanda aa4 Sierra Sorto RN RN lp1 Bull Mcclain PA PA jr8 Joslyn Ervin, RN RN hb
[2017-06-03 10:43] VITALS: TEMP 99.1
[2017-06-03 10:44] VITALS: O2SAT 100
[2017-06-03 10:47] VITALS: BP 132/82
== END 2017-06-03 10:31 | disposition home or self-care (01) ==
LOC: ER 06:25
DX: N93.9 Abnormal uterine and vaginal bleeding, unspecified (principal); N89.7 Hematocolpos; I10 Essential (primary) hypertension
CPT/HCPCS: 36415; 76830; 80048; 81003; 81025; 85025; 96374; 96375; 99284; J2405

== ENCOUNTER 2017-06-14 06:23 | Day surgery (SDC) | payer OTHER ==
[2017-06-14] MEDS: LABETALOL HCL 100 MG/20 ML ONE ×2 (06:07→07:06)
[2017-06-14] MEDS ORDERED: Ringers Lactate 1,000 ML IV ONE (06:44)
[2017-06-14] MEDS ORDERED: LIDOCAINE 1% W/EPI 1:100,000 MDV 50 ML VIAL ONE (07:03)
[2017-06-14] MEDS ORDERED: NA CHLORIDE 0.9% 1,000 ML ONE (07:03)
[2017-06-14] MEDS ORDERED: FENTANYL CITR 100 MCG/2 ML ONE (07:06)
[2017-06-14] MEDS ORDERED: PROPOFOL 200 MG/20 ML VIAL IV ONE (07:06)
[2017-06-14] MEDS ORDERED: LIDOCAINE 2% MPF 5 ML VIAL ONE (07:06)
[2017-06-14] MEDS ORDERED: MIDAZOLAM HCL 2 MG/2 ML INJ ONE (07:06)
[2017-06-14] MEDS ORDERED: KETOROLAC 30 MG/ML INJ ONE (08:00)
[2017-06-14] MEDS ORDERED: PROMETHAZINE 25 MG/ML VIAL ONE (08:24)
[2017-06-14] MEDS: MEPERIDINE HCL 25 MG/0.5 ML ONE ×2 (08:27→08:45)
[2017-06-14 08:51] VITALS: TEMP 98.4
[2017-06-14 09:23] VITALS: BP 152/94; O2SAT 97
--- NOTE | 2017-06-14 14:37 | EKG ---
Test Date: 2017-06-14 Test Time: 08:38:46 Manipulator Operator: BRIANA MEASUREMENT RESULTS: Intervals: Rate: 82 OR: 120 QRSD: 76 QT: 336 QTc: 392 [place]: P: 45 OR: 120 QRS: 22 T: 28 INTERPRETIVE STATEMENTS: Normal sinus rhythm Nonspecific T wave abnormality Abnormal ECG No previous ECG available for comparison Electronically Signed On 06-14-17 14:34:06 CDT by Gordon Charles
--- NOTE | 2017-06-14 18:37 | OP ---
Date of Procedure: 06/14/2017 Surgeon: Darcie Davis MD Preoperative Diagnoses: Pelvic pain, menorrhagia, hematometra. Postoperative Diagnoses: Pelvic pain, menorrhagia, cervical stenosis, thickened endometrium. Procedures Performed: Hysteroscopy, dilation and curettage. Anesthesia: General. Specimens: Endometrial curettings. Complications: No complications. Drains: No drains. Findings: Uterus sounded to 13 cm. Endometrium appeared to be thickened. No intracavitary lesions. The cervix was about 4 cm long, and there appeared to be scar tissue in the distal half of it. Venecia quate tissue was obtained for biopsy. Description Of Procedure: After informed consent was verified, patient was taken back to the OR, francia josh in supine fashion on the operating table. After general anesthesia was given, she was placed in a dorsal lithotomy position. A pelvic exam performed. Uterus was enlarged, about 10 week size. No adnexal masses. Speculum was used to expose the cervix. The distal-most part of the cervix from 3 o'clock to 6 o'quan ck appeared to be very minimal, and vaginal wall was seen from here. Anterior lip was grasped with 2 Allis clamps. There was thick, dark, gelatinous discharge at the cervix. This was taken out with t he help of ring forceps. Prep x3 with Betadine was done. Then, the cervix was sounded to about 4 cm . Hysteroscope was used to gently start at the external os and under direct visualization uterine ca vity was entered without any problems. The sounding length of the uterine cavity was about 9 cm from the internal os, the total was 13. The cavity was empty. Both tubal ostia were visualized. No int racavitary lesions. However, thickened endometrium was seen that was somewhat irregular as well. Th e scope was removed and curettings were performed with a #1 curette. The specimens were handed off f or permanent pathology. The patient was cleaned up. All the instruments were removed. All the inst rument and sponge counts were done and were correct at the end of the case. The patient tolerated th e procedure well. She was recovered from anesthesia in the OR and taken to PACU in stable condition. Her blood pressure was slightly higher. That was treated here. The blood sugar was 144, it did no t need to be treated. However, patient definitely needs care for her diabetes and hypertension. SK/JORDYN Voice ID: [id number] Report ID: [id number]
== END 2017-06-14 10:05 | disposition home or self-care (01) ==
LOC: OR 06:23
PROVIDERS: ATTEND Obstetrics & Gynecology
PROC: 0UJD8ZZ Inspection of Uterus and Cervix, Via Natural or Artificial Opening Endoscopic (ICD-10-PCS; 2017-06-14)
PROC: 0UDB7ZX Extraction of Endometrium, Via Natural or Artificial Opening, Diagnostic (ICD-10-PCS; principal; 2017-06-14 07:30)
DX: N92.1 Excessive and frequent menstruation with irregular cycle (principal); N88.2 Stricture and stenosis of cervix uteri; R10.2 Pelvic and perineal pain; E28.2 Polycystic ovarian syndrome; D50.0 Iron deficiency anemia secondary to blood loss (chronic); R93.8 Abnormal findings on diagnostic imaging of other specified body structures; I10 Essential (primary) hypertension; E11.9 Type 2 diabetes mellitus without complications; E66.9 Obesity, unspecified; Z82.49 Family history of ischemic heart disease and other diseases of the circulatory system; Z83.3 Family history of diabetes mellitus; Z80.41 Family history of malignant neoplasm of ovary; Z80.3 Family history of malignant neoplasm of breast
CPT/HCPCS: 81025; 82962; 88305; 93005; J2175; J2250; J2550; J3010; J7030

== ENCOUNTER 2017-06-22 17:06 | Observation (INO) | payer OTHER ==
[2017-06-22] MEDS ORDERED: METHYLPREDNISOLONE 125 MG INJ ONE (17:49)
[2017-06-22] MEDS ORDERED: NA CHLORIDE 0.9% 1,000 ML ONE (17:50)
[2017-06-22] MEDS ORDERED: DIPHENHYDRAMINE 50 MG/ML VIAL ONE (17:50)
[2017-06-22] MEDS ORDERED: FAMOTIDINE 20 MG/2 ML VIAL IV ONE (17:50)
[2017-06-22 18:16] LABS: Absolute Lymphocytes (CBC) 1.1 K/uL (0.7-4.9); Absolute Monocytes 0.1 K/uL (0.1-1.3); Absolute Neutrophil 12.5 K/uL (1.8-8.0); Basophils % 0.3 % (0-1.3); Eosinophils % 0.4 % (0-4.4); Hematocrit 32.8 % (36.0-45.0); MCH 23.9 pg (27.0-35.0); MCV 74.2 fL (80-100); MPV 8.2 fL (7.6-11.3); Monocytes % 0.5 % (3.3-12.3); RBC Red Blood Cell Count 4.42 M/uL (3.86-4.86)
[2017-06-22 18:19] LABS: Bicarbonate 23 mEq/L (21-31); Glucose Level 184 mg/dL (65-120); Potassium 3.5 mEq/L (3.6-5.0); Sodium Level 136 mEq/L (135-145)
[2017-06-22 18:20] LABS: BUN Blood Urea Nitrogen 10 mg/dL (6-20)
[2017-06-22 19:17] LABS: Blood Morphology Comment NOT SEEN (NOT SEEN); Platelet Estimate INCR; Urine White Blood Cell Casts OK
--- NOTE | 2017-06-22 20:45 | ER ---
Nurse's Notes [facility] Name: Elsy Lux Age: 32 yrs Sex: Female : 1985 Arrival Date: 06/22/2017 Time: 17:10 Bed 20 Private MD: Diagnosis: Angioneurotic edema Presentation: 06/22 17:16 Presenting complaint: Patient states: swelling started after taking lisinopril and ch amlodipine. I was given a Decadron shot at urgent care at 1030am. then I took allergy D allergy sinus relief-diphenhydramine, phenylephrine when I got home at 1300. my lip is still swelling. Transition of care: patient was not received from another setting of care. Onset: The symptoms/episode began/occurred gradually, this morning. Anaphylaxis evaluation, angioedema. Onset of symptoms was June 22, 2017 at 08:00. Initial Sepsis Screen: Does the patient meet any 2 criteria? No. Patient's initial sepsis screen is negative. Does the patient have a suspected source of infection? No. Patient's initial sepsis screen is negative. Care prior to arrival: Medication(s) given: see triage note. 17:16 Method Of Arrival: Ambulatory 17:16 Acuity: SOBIA 2 ch Triage Assessment: 17:20 General: Appears in no apparent distress. uncomfortable, Behavior is cooperative, ch appropriate for age. Pain: Complains of pain in lower lip and lower lalita border Pain currently is 2 out of 10 on a pain scale. 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 - Social history:: Smoking status: Patient/guardian denies using tobacco. Screenin:40 Abuse screen: Denies threats or abuse. Denies injuries from another. Nutritional aj1 screening: No deficits noted. Tuberculosis screening: No symptoms or risk factors identified. 21:42 Fall Risk No fall in past 12 months (0 pts). No secondary diagnosis (0 pts). IV access aj1 (20 points). Ambulatory Aid- None/Bed Rest/Nurse Assist (0 pts). Gait- Normal/Bed Rest/Wheelchair (0 pts) Mental Status- Oriented to own ability (0 pts). Total Bonilla Fall Scale indicates No Risk (0-24 pts). Assessment: 17:40 General: Appears in no apparent distress. comfortable, Behavior is calm, cooperative, aj1 appropriate for age. Pain: Complains of pain in lower lip Pain does not radiate. Pain currently is 5 out of 10 on a pain scale. Quality of pain is described as pressure. Neuro: Level of Consciousness is awake, alert, obeys commands, Oriented to person, place, time, situation. Cardiovascular: Patient's skin is warm and dry. Respiratory: Airway is patent Respiratory effort is even, unlabored, Respiratory pattern is regular, symmetrical, Bottom lip is swollen, tongue is normal. Patient states the only swelling or discomfort she feels is in her lower lip. Patient was instructed to notify staff immediately if she began to feel any new swelling, and numbness or tingling, or shortness of breath. Breath sounds are clear bilaterally. Denies shortness of breath. GI: No signs and/or symptoms were reported involving the gastrointestinal system. : No signs and/or symptoms were reported regarding the genitourinary system. EENT: Throat is clear bilaterally. Derm: Skin is normal. Musculoskeletal: No signs and/or symptoms reported regarding the musculoskeletal system. Circulation, motion, and sensation intact. 17:42 Reassessment: CAROLINE Archibald at bedside. aj1 18:33 Reassessment: Patient appears in no apparent distress at this time. No changes from aj1 previously documented assessment. Patient and/or family updated on plan of care and expected duration. Pain level reassessed. Patient is alert, oriented x 3, equal unlabored respirations, skin warm/dry/pink. 19:30 Reassessment: Patient and/or family updated on plan of care and expected duration. Pain aj1 level reassessed. General: Appears in no apparent distress. comfortable, Behavior is calm, cooperative, appropriate for age. Neuro: Level of Consciousness is awake, alert, obeys commands, Oriented to person, place, time, situation. Cardiovascular: Patient's skin is warm and dry. Respiratory: Airway is patent Respiratory effort is even, unlabored, Respiratory pattern is regular, symmetrical, Breath sounds are clear bilaterally. Lip swelling remains unchanged. 20:30 Reassessment: Patient appears in no apparent distress at this time. No changes from aj1 previously documented assessment. Patient and/or family updated on plan of care and expected duration. Pain level reassessed. Patient is alert, oriented x 3, equal unlabored respirations, skin warm/dry/pink. 21:36 Reassessment: Patient and/or family updated on plan of care and expected duration. Pain aj1 level reassessed. General: Appears in no apparent distress. comfortable, Behavior is calm, cooperative. Neuro: Level of Consciousness is awake, alert, confused, Oriented to person, place, time, situation. Cardiovascular: Patient's skin is warm and dry. Rhythm is sinus tachycardia. Respiratory: Airway is patent Respiratory effort is even, unlabored, Respiratory pattern is regular, symmetrical, Breath sounds are clear bilaterally. Lip swelling remains unchanged. Derm: Skin is normal. Musculoskeletal: No signs and/or symptoms reported regarding the musculoskeletal system. Circulation, motion, and sensation intact. 22:12 Reassessment: Patient appears in no apparent distress at this time. No changes from aj1 previously documented assessment. Patient and/or family updated on plan of care and expected duration. Pain level reassessed. Patient is alert, oriented x 3, equal unlabored respirations, skin warm/dry/pink. Vital Signs: 17:20 BP 158 / 103; Pulse 126; Resp 24; Temp 99.1; Pulse Ox 99% on R/A; Weight 112.04 kg; Height 5 ft. 4 in. (162.56 cm); Pain 2/10; 18:32 BP 131 / 80; Pulse 102; Resp 28; Pulse Ox 95% on R/A; aj1 19:30 BP 132 / 87; Pulse 96; Resp 31; Pulse Ox 96% on R/A; dh3 20:30 BP 157 / 96; Pulse 99; Resp 18; Pulse Ox 100% on R/A; aj1 21:38 BP 148 / 87; Pulse 101; Resp 24; Pulse Ox 97% on R/A; aj1 22:14 BP 138 / 83; Pulse 102; Resp 15; Pulse Ox 97% ; aj1 17:20 Body Mass Index 42.40 (112.04 kg, 162.56 cm) ED Course: 17:10 Patient arrived in ED. sb2 17:18 Triage completed. 17:20 Arm band placed on left wrist. Patient placed in waiting room. 17:36 Joyce Crenshaw RN is Primary Nurse. aj1 17:39 Bull Mcclain PA is PHCP. jr8 17:39 Mamadou Lopez MD is Attending Physician. jr8 17:40 Patient has correct armband on for positive identification. Bed in low position. Call aj1 light in reach. Side rails up X 1. hall monitor on. Pulse ox on. NIBP on. 17:40 No provider procedures requiring assistance completed. aj1 17:45 Inserted saline lock: 18 gauge in right antecubital area, using aseptic technique. IV dm5 inserted by Joyce Crenshaw RN. 20:43 Sherron Samuels MD is Hospitalizing Provider. jr8 22:11 Report given to VARGHESE Hurtado on 4th floor. aj1 22:14 Patient admitted, IV remains in place. aj1 Administered Medications: 17:48 Drug: Benadryl 25 mg Route: IVP; Site: right antecubital; dm5 22:15 Follow up: Response: No adverse reaction aj1 17:48 Drug: SOLU-Medrol 125 mg Route: IVP; Site: right antecubital; dm5 22:15 Follow up: Response: No adverse reaction aj1 17:48 Drug: Pepcid 20 mg Route: IVP; Site: right antecubital; dm5 22:16 Follow up: Response: No adverse reaction aj1 17:48 Drug: NS 0.9% 1000 ml Route: IV; Rate: 1000 ml; Site: right antecubital; dm5 22:16 Follow up: IV Status: Completed infusion; IV Intake: 1000ml aj1 Intake: 22:16 IV: 1000ml; Total: 1000ml. aj1 Outcome: 20:44 Decision to Hospitalize by Provider. jr8 22:13 Admitted to Tele accompanied by tech, via wheelchair, room 410, with chart. aj1 22:13 Condition: stable 22:13 Discharge instructions given to patient, Instructed on the need for admit, Demonstrated understanding of instructions. 22:29 Patient left the ED. ed1 Signatures: Emily Javed, RN RN Joyce Vences RN RN aj1 Clau Kessler RN RN dm5 Taina Walker, GORDON ALMOND BLANCHER HAND ed1 Bull Mcclain PA PA jr8 Dolores Gan 3 Amairani Barnett 2
--- NOTE | 2017-06-22 20:45 | EDPHYS ---
Physician Documentation [facility] Name: Elsy Lux Age: 32 yrs Sex: Female : 1985 Arrival Date: 06/22/2017 Time: 17:10 Bed 20 Private MD: ED Physician Mamadou Lopez HPI: 06/22 19:52 This 32 yrs old Black Female presents to ER via Ambulatory with complaints of Allergic jr8 Reaction. 19:52 Onset: The symptoms/episode began/occurred acutely, today. Associated signs and jr8 symptoms: The patient has no apparent associated signs or symptoms. Possible causes: MARKOS inhibitor. Severity of symptoms: At their worst the symptoms were moderate in the emergency department the symptoms are unchanged. The patient has not experienced similar symptoms in the past. The patient has not recently seen a physician. Patient recently started taking lisinopril. Started to have sudden onset lower lip swelling . 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 - Social history:: Smoking status: Patient/guardian denies using tobacco. ROS: 19:52 Eyes: Negative for injury, pain, redness, and discharge, Neck: Negative for injury, jr8 pain, and swelling, Cardiovascular: Negative for chest pain, palpitations, and edema, Respiratory: Negative for shortness of breath, cough, wheezing, and pleuritic chest pain, Abdomen/GI: Negative for abdominal pain, nausea, vomiting, diarrhea, and constipation, Back: Negative for injury and pain, MS/Extremity: Negative for injury and deformity, Skin: Negative for injury, rash, and discoloration, Neuro: Negative for headache, weakness, numbness, tingling, and seizure. 19:52 ENT: Negative for sore throat, difficulty swallowing, difficulty handling secretions, hoarseness. Exam: 19:52 Head/Face: Normocephalic, atraumatic. Eyes: Pupils equal round and reactive to light, jr8 extra-ocular motions intact. Lids and lashes normal. Conjunctiva and sclera are non-icteric and not injected. Cornea within normal limits. Periorbital areas with no swelling, redness, or edema. Neck: Trachea midline, no thyromegaly or masses palpated, and no cervical lymphadenopathy. Supple, full range of motion without nuchal rigidity, or vertebral point tenderness. No Meningismus. Cardiovascular: Regular rate and rhythm with a normal S1 and S2. No gallops, murmurs, or rubs. Normal PMI, no JVD. No pulse deficits. Respiratory: Lungs have equal breath sounds bilaterally, clear to auscultation and percussion. No rales, rhonchi or wheezes noted. No increased work of breathing, no retractions or nasal flaring. Abdomen/GI: Soft, non-tender, with normal bowel sounds. No distension or tympany. No guarding or rebound. No evidence of tenderness throughout. Back: No spinal tenderness. No costovertebral tenderness. Full range of motion. Skin: Warm, dry with normal turgor. Normal color with no rashes, no lesions, and no evidence of cellulitis. MS/ Extremity: Pulses equal, no cyanosis. Neurovascular intact. Full, normal range of motion. Neuro: Awake and alert, GCS 15, oriented to person, place, time, and situation. Cranial nerves II-XII grossly intact. Motor strength 5/5 in all extremities. Sensory grossly intact. Cerebellar exam normal. Normal gait. 19:52 ENT: Exam is negative for earache, ear discharge, TM abnormalities, nasal discharge, pharyngitis, abnormal voice, Mouth: Lips: lower lip, swollen and edematous , Oral mucosa: pink and intact, moist, Gums: pink, Tongue: is normal, drooling, is not appreciated, Posterior pharynx: Airway: patent, Tonsils: are normal in appearance, Uvula: midline, swelling, is not appreciated. Vital Signs: 17:20 BP 158 / 103; Pulse 126; Resp 24; Temp 99.1; Pulse Ox 99% on R/A; Weight 112.04 kg; ch Height 5 ft. 4 in. (162.56 cm); Pain 2/10; 18:32 BP 131 / 80; Pulse 102; Resp 28; Pulse Ox 95% on R/A; aj1 19:30 BP 132 / 87; Pulse 96; Resp 31; Pulse Ox 96% on R/A; dh3 20:30 BP 157 / 96; Pulse 99; Resp 18; Pulse Ox 100% on R/A; aj1 21:38 BP 148 / 87; Pulse 101; Resp 24; Pulse Ox 97% on R/A; aj1 22:14 BP 138 / 83; Pulse 102; Resp 15; Pulse Ox 97% ; aj1 17:20 Body Mass Index 42.40 (112.04 kg, 162.56 cm) ch MDM: 17:39 Patient medically screened. jr8 20:43 Data reviewed: vital signs, nurses notes, lab test result(s), and as a result, I will jr8 admit patient. Data interpreted: Pulse oximetry: on room air is 96 %. Interpretation: normal. Counseling: I had a detailed discussion with the patient and/or guardian regarding: the historical points, exam findings, and any diagnostic results supporting the discharge/admit diagnosis, lab results, the need for further work-up and treatment in the hospital. Physician consultation: Sherron Samuels MD was called at 20:43, was contacted at 20:43, regarding admission, to the medical/surgical unit. consult, patient's condition, and will see patient. 06/22 17:53 Order name: CBC with Diff; Complete Time: 19:22 [facility] 06/22 17:53 Order name: Basic Metabolic Panel; Complete Time: 18:24 [facility] 06/22 19:17 Order name: CBC Smear Scan; Complete Time: 19:22 [facility] 06/22 17:40 Order name: IV; Complete Time: 17:57 jr Administered Medications: 17:48 Drug: Benadryl 25 mg Route: IVP; Site: right antecubital; dm5 22:15 Follow up: Response: No adverse reaction aj1 17:48 Drug: SOLU-Medrol 125 mg Route: IVP; Site: right antecubital; dm5 22:15 Follow up: Response: No adverse reaction [facility] 17:48 Drug: Pepcid 20 mg Route: IVP; Site: right antecubital; dm5 22:16 Follow up: Response: No adverse reaction aj1 17:48 Drug: NS 0.9% 1000 ml Route: IV; Rate: 1000 ml; Site: right antecubital; dm5 22:16 Follow up: IV Status: Completed infusion; IV Intake: 1000ml aj1 Disposition: 22:38 Co-signature as Attending Physician, Mamadou Lopez MD I agree with the assessment and kdr plan of care. Disposition: 06/22/17 20:44 Hospitalization ordered by Sherron Samuels for Observation. Preliminary diagnosis is Angioneurotic edema. - Bed requested for Telemetry/MedSurg (observation). - Status is Observation. ed1 - Condition is Stable. - Problem is new. - Symptoms have improved. UTI on Admission? No Signatures: Dispatcher [employer] EDMS Emily Javed, RN RN Clau Kessler RN RN dm5 Shanelle Jauregui RN RN aa1 Mamadou Lopez MD MD [facility] Taina Walker, CONFERENCE COORDINATOR CONFERENCE COORDINATOR ed1 Bull Mcclain PA PA jr8 Joyce Crenshaw RN aj1 Corrections: (The following items were deleted from the chart) 20:53 20:44 Hospitalization Ordered by Sherron Samuels MD for Observation. Preliminary aa1 diagnosis is Angioneurotic edema. Bed requested for Telemetry/MedSurg (observation). Status is Observation. Condition is Stable. Problem is new. Symptoms have improved. UTI on Admission? No. jr8 22:29 20:53 06/22/2017 20:44 Hospitalization Ordered by Sherron Samuels MD for Observation. ed1 Preliminary diagnosis is Angioneurotic edema. Bed requested for Telemetry/MedSurg (observation). Status is Observation. Condition is Stable. Problem is new. Symptoms have improved. UTI on Admission? No. aa1
[2017-06-22] MEDS ORDERED: MORPHINE 2 MG/ML SYR IV PRN (21:25)
[2017-06-22] MEDS ORDERED: DIPHENHYDRAMINE 50 MG/ML VIAL IV PRN (21:25)
[2017-06-22] MEDS ORDERED: ONDANSETRON 4 MG/2 ML VIAL IV PRN (21:25)
[2017-06-23] MEDS: ACETAMINOPHEN 500 MG TAB PO PRN (00:11)
[2017-06-23] MEDS: NA CHLORIDE 0.9% 1,000 ML IV SCH ×2 (00:12→15:30)
[2017-06-23 01:45] VITALS: O2SAT 98
[2017-06-23] MEDS ORDERED: DIPHENHYDRAMINE 50 MG/ML VIAL IV ONE (06:46)
[2017-06-23] MEDS ORDERED: Morphine 2 MG/2 ML SYR IV PRN (07:14)
--- NOTE | 2017-06-23 07:35 | P.HP ---
Certification for Inpatient Patient admitted to: Observation With expected LOS: <2 Midnights Patient will require the following post-hospital care: None Practitioner: I am a practitioner with admitting privileges, knowledge of patient current condition, hospital course, and medical plan of care. Services: Services provided to patient in accordance with Admission requirements found in Title 42 Section 412.3 of the Code of Federal Regulations Patient History Date of Service: 06/22/17 Reason for admission: Angioedema secondary to ROYAL inhibitor History of Present Illness: The patient is a 32-year-old female who came into the hospital after taking blood pressure medication and developing swelling in her lip. She just started taking an ROYAL-inhibitor 48 hrs ago. The swelling started on the right side of her lip and spread to the left side. She came into the hospital for further evaluation. In the emergency room she was given steroids and Benadryl. The swelling has stabilize. She said the she feels better. She has minimal tenderness. Will continue to evaluate and have asked her to just put some gentle pressure to help reduce the swelling. Anticipate discharge in 24-48 hr. Allergies lisinopril or amlodpin Allergy (Uncoded 06/22/17 22:33) Unknown Home Medications: Norgestimate-Ethinyl Estradiol [Sprintec 28 Day Tablet] 1 each PO DAILY Amlodipine [Norvasc*] 5 mg PO DAILY 06/23/17 Fluconazole [Diflucan] 150 mg PO EVERY 7TH DAY 06/23/17 Metformin ER [Glucophage ER*] 500 mg PO DAILY 06/23/17 - Past Medical/Surgical History Has patient received pneumonia vaccine in the past: Yes Diabetic: Yes -: HTN -: NIDDM -: D&C -: Hysteroscopy - Family History Father Medical History: Hypertension Mother Medical History: Seizures - Social History Smoking Status: Never smoker Alcohol use: No CD- Drugs: No Caffeine use: No Place of Residence: Home Review of Systems 10-point ROS is otherwise unremarkable Physical Examination - Vital Signs Temperature: 98.5 F Blood Pressure: 146/79 Pulse: 110 Respirations: 18 Pulse Ox (%): 99 - Physical Exam General: Alert, In no apparent distress, Oriented x3 HEENT: Atraumatic, PERRLA, Other (swelling of the lower lips), EOMI, Sclerae nonicteric Neck: Supple, 2+ carotid pulse no bruit, No LAD, Without JVD or thyroid abnormality Respiratory: Clear to auscultation bilaterally, Normal air movement Cardiovascular: Regular rate/rhythm, Normal S1 S2, No murmurs Gastrointestinal: Normal bowel sounds, Soft and benign, Non-distended, No tenderness Musculoskeletal: No clubbing, No swelling, No tenderness Integumentary: No rashes Neurological: Normal gait, Normal speech, Normal strength at 5/5 x4 extr, Normal tone, Sensation intact, Cranial nerves 3-12 intact, Normal affect Lymphatics: No axilla or inguinal lymphadenopathy - Studies Laboratory Data (last 24 hrs) 06/22/17 18:00: Sodium 136, Potassium 3.5 L, BUN 10, Creatinine 0.82, Glucose 184 H 06/22/17 18:00: WBC 13.7 H, Hgb 10.6 L, Hct 32.8 L, Plt Count 566 H Assessment & Plan - Problems (Diagnosis) (1) Angioedema due to angiotensin converting enzyme inhibitor (ROYAL-I) Current Visit: Yes Status: Acute - Plan Plan: 1. Continue with IV steroids 2. IV Benadryl 3. Hold Royal inhibitors 4. Low-dose beta-lydia at time of discharge along with Medrol Dosepak and low- dose Benadryl. 5. GI and DVT prophylaxis Discharge Plan: Home Plan to discharge in: 24 Hours - Advance Directives Does patient have a Living Will: Yes Does patient have a Durable POA for Healthcare: No - Code Status/Comfort Care Code Status Assessed: Yes Code Status: Full Code Critical Care: No Time Spent Managing PTS Care (In Minutes): 50
--- NOTE | 2017-06-23 13:44 | P.PN ---
Subjective Date of Service: 06/23/17 Chief Complaint: Angioedema secondary to MARKOS inhibitor Subjective: No C/O voiced, Improving, Doing well Review of Systems General: As per HPI Physical Examination - Vital Signs Temperature: 97.8 F Blood Pressure: 137/72 Pulse: 112 Respirations: 18 Pulse Ox (%): 95 - Physical Exam General: Alert, In no apparent distress HEENT: Atraumatic, Other (LIp swelling noted. No toungue swelling. No airway compromised ) Neck: Supple Respiratory: Clear to auscultation bilaterally, Normal air movement Cardiovascular: Regular rate/rhythm, Normal S1 S2 Gastrointestinal: Normal bowel sounds, No tenderness Musculoskeletal: No tenderness Integumentary: No rashes Neurological: Normal speech, Normal tone, Normal affect Lymphatics: No axilla or inguinal lymphadenopathy - Studies Laboratory Data (last 24 hrs) 06/22/17 18:00: Sodium 136, Potassium 3.5 L, BUN 10, Creatinine 0.82, Glucose 184 H 06/22/17 18:00: WBC 13.7 H, Hgb 10.6 L, Hct 32.8 L, Plt Count 566 H Medications List Reviewed: Yes Assessment & Plan - Problems (Diagnosis) (1) Angioedema due to angiotensin converting enzyme inhibitor (MARKOS-I) Onset Date: 06/23/17 Current Visit: Yes Status: Acute Plan: Improving at this time -Stop MARKOS inhibitor -Kyra Discharge Plan: Home Plan to discharge in: 24 Hours - Code Status/Comfort Care Code Status Assessed: Yes Critical Care: No
[2017-06-23] MEDS: METHYLPREDNISOLONE 125 MG INJ IV SCH (21:24)
[2017-06-24] MEDS ORDERED: TEMAZEPAM 15 MG CAP PO ONE (00:02)
[2017-06-24] MEDS: NA CHLORIDE 0.9% 1,000 ML IV SCH (00:27)
[2017-06-24] MEDS: METHYLPREDNISOLONE 125 MG INJ IV SCH ×3 (00:27→11:54)
[2017-06-24 05:29] VITALS: BMI 42.7
[2017-06-24] MEDS: ACETAMINOPHEN 500 MG TAB PO PRN (11:54)
[2017-06-24 14:40] VITALS: BP 163/89; TEMP 97.6
--- NOTE | 2017-06-24 15:11 | P.DS ---
Admission Date: 06/22/17 Discharge Date: 06/24/17 Disposition: ROUTINE DISCHARGE Discharge Condition: GOOD Reason for Admission: Angioedema secondary to ROYAL inhibitor Consultations: None - Problems (1) Angioedema due to angiotensin converting enzyme inhibitor (ROYAL-I) Onset Date: 06/23/17 Status: Acute Brief History of Present Illness: The patient is a 32-year-old female who came into the hospital after taking blood pressure medication and developing swelling in her lip. She just started taking an ROYAL-inhibitor 48 hrs ago. The swelling started on the right side of her lip and spread to the left side. She came into the hospital for further evaluation. In the emergency room she was given steroids and Benadryl. The swelling has stabilize. She said the she feels better. She has minimal tenderness. Will continue to evaluate and have asked her to just put some gentle pressure to help reduce the swelling. Anticipate discharge in 24-48 hr Hospital Course: Overall during the hospital stay patient remained stable The patient was initially admitted to the hospital for angioedema most likely secondary to ROYAL-inhibitor use. Patient was kept on methylprednisone here in the hospital q 6 hr along with Benadryl q.6 hr. No airway compromise was noted. Patient had marked improvement on day 3 of hospitalization. Patient was then discharged home under stable condition and was given prescriptions for oral prednisone 20 mg tapering dose along with Benadryl as well. Patient was asked to keep a log of food diary and make sure that she was taking any lisinopril any Royal inhibitors in the future. Patient was asked to follow up with her primary care doctor in about 1-2 days post discharge and was also told to follow up with her Glue Wheel Operator in about 1-2 days post discharge as well Vital Signs/Physical Exam: Temp Pulse Resp BP Pulse Ox 97.6 F 88 18 163/89 H 96 06/24/17 12:00 06/24/17 12:00 06/24/17 12:00 06/24/17 12:00 06/24/17 12:00 General: Alert, In no apparent distress HEENT: Atraumatic, PERRLA, EOMI Neck: Supple, JVD not distended Respiratory: Clear to auscultation bilaterally, Normal air movement Cardiovascular: Regular rate/rhythm, Normal S1 S2 Gastrointestinal: Normal bowel sounds, No tenderness Musculoskeletal: No tenderness Integumentary: No rashes Neurological: Normal speech, Normal tone, Normal affect Lymphatics: No axilla or inguinal lymphadenopathy Laboratory Data at Discharge: WBC 13.7 K/uL (4.3-10.9) H 06/22/17 18:00 Hgb 10.6 g/dL (12.0-15.0) L 06/22/17 18:00 Hct 32.8 % (36.0-45.0) L 06/22/17 18:00 Plt Count 566 K/uL (152-406) H 06/22/17 18:00 Sodium 136 mEq/L (135-145) 06/22/17 18:00 Potassium 3.5 mEq/L (3.6-5.0) L 06/22/17 18:00 BUN 10 mg/dL (6-20) 06/22/17 18:00 Creatinine 0.82 mg/dL (0.44-1.00) 06/22/17 18:00 Glucose 184 mg/dL (65-120) H 06/22/17 18:00 Home Medications: Norgestimate-Ethinyl Estradiol [Sprintec 28 Day Tablet] 1 each PO DAILY Amlodipine [Norvasc*] 5 mg PO DAILY 06/23/17 Fluconazole [Diflucan] 150 mg PO EVERY 7TH DAY 06/23/17 Metformin ER [Glucophage ER*] 500 mg PO DAILY 06/23/17 Diphenhydramine HCl [Benadryl Allergy] 25 mg PO Q6H #40 tablet 06/24/17 Hydrochlorothiazide [Hydrochlorothiazide*] 12.5 mg PO DAILY #30 cap 06/24/17 Prednisone [Deltasone] 20 mg PO BID #30 tab 06/24/17 New Medications: Diphenhydramine HCl [Benadryl Allergy] 25 mg PO Q6H #40 tablet Hydrochlorothiazide [Hydrochlorothiazide*] 12.5 mg PO DAILY #30 cap Prednisone [Deltasone] 20 mg PO BID #30 tab Patient Discharge Instructions: Please f/u with PCP in 1 to 2 weeks post discharge. New medication. Prednisone 20mg tapering dose. HCTZ 12.5mg Daily. You were admitted for Angioedema secondary to ROYAL inhibitor. DO not take lisinopril, ramparil or any other medication end with PRIL Followup: Gloria López MD [ACTIVE - CAN ADMIT] - 1-2 Weeks (call to schedule appointment)
== END 2017-06-24 13:05 | disposition home or self-care (01) ==
LOC: ER 17:06 → ERHOLD 20:53 → 4TH 22:12
PROVIDERS: ADMIT Hospitalist; ATTEND Hospitalist
DX: T78.3XXA Angioneurotic edema, initial encounter (principal); T88.7XXA Unspecified adverse effect of drug or medicament, initial encounter; T44.5X5A Adverse effect of predominantly beta-adrenoreceptor agonists, initial encounter; I10 Essential (primary) hypertension; E11.9 Type 2 diabetes mellitus without complications
CPT/HCPCS: 36415; 80048; 85025; 94760; 96361; 96374; 96375; 99285; G0378; J2270; J2930; J7030

== ENCOUNTER 2017-09-30 20:47 | Observation (INO) | payer OTHER ==
[2017-09-30 22:17] LABS: Urine Blood 3+ (NEG); Urine Glucose NEGATIVE (NEG); Urine Protein 2+ (NEG); Urine Specific Gravity 1.025 (1.005-1.030); Urine pH 5.5 (5.0-7.0)
[2017-09-30] MEDS ORDERED: NA CHLORIDE 0.9% 1,000 ML ONE (22:19)
[2017-09-30 22:33] LABS: Absolute Lymphocytes (CBC) 1.1 K/uL (0.7-4.9); Absolute Monocytes 0.4 K/uL (0.1-1.3); Absolute Neutrophil 5.9 K/uL (1.8-8.0); Basophils % 0.3 % (0-1.3); Eosinophils % 1.2 % (0-4.4); Hematocrit 32.6 % (36.0-45.0); MCH 23.2 pg (27.0-35.0); MCV 70.5 fL (80-100); MPV 8.3 fL (7.6-11.3); Monocytes % 5.9 % (3.3-12.3); RBC Red Blood Cell Count 4.63 M/uL (3.86-4.86)
[2017-09-30 22:41] LABS: Urine Culture Reflex Order REFLEXED; Urine Mucus HEAVY /HPF (NONE SEEN); Urine RBC TNTC /HPF (NONE SEEN)
[2017-09-30 22:42] LABS: Urine Bacteria 20-50 /HPF (<20)
[2017-09-30 23:19] LABS: ALT/SGPT 24 U/L (12-78); AST/SGOT 15 U/L (15-37); Albumin 3.6 g/dL (3.4-5.0); Alkaline Phosphatase 69 U/L (45-117); Amylase Level 39 U/L (25-115); BUN Blood Urea Nitrogen 14 mg/dL (7-18); Bicarbonate 26 mmol/L (21-32); Bilirubin Direct < 0.1 mg/dL (0-0.2); Bilirubin Total 0.3 mg/dL (0.2-1.0); Glucose Level 105 mg/dL (74-106); Lipase 100 U/L (73-393); Potassium 3.4 mmol/L (3.5-5.1); Protein, Total 8.1 g/dL (6.4-8.2); Sodium Level 136 mmol/L (136-145)
--- NOTE | 2017-09-30 23:23 | EDPHYS ---
Physician Documentation [facility] Name: Elsy Lux Age: 32 yrs Sex: Female : 1985 Arrival Date: 09/30/2017 Time: 20:49 Bed 20 Private MD: Gloria López ED Physician Kyle Fischer HPI: 09/30 22:02 This 32 yrs old Black Female presents to ER via Ambulatory with complaints of Knee tram Pain, Vomiting/Diarrhea. 22:02 The patient presents to the emergency department with nausea, vomiting, diarrhea, tram abdominal pain, of the right lower quadrant and left lower quadrant. Onset: The symptoms/episode began/occurred 2 day(s) ago. Possible causes: unknown. The symptoms are aggravated by nothing. Severity of symptoms: At their worst the symptoms were mild moderate in the emergency department the symptoms are unchanged. 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 - Social history:: Smoking status: Patient/guardian denies using tobacco. - Ebola Screening: : No symptoms or risks identified at this time. ROS: 22:03 Eyes: Negative for injury, pain, redness, and discharge, ENT: Negative for injury, tram pain, and discharge, Neck: Negative for injury, pain, and swelling, Cardiovascular: Negative for chest pain, palpitations, and edema, Respiratory: Negative for shortness of breath, cough, wheezing, and pleuritic chest pain, Back: Negative for injury and pain, : Negative for injury, bleeding, discharge, and swelling, Skin: Negative for injury, rash, and discoloration, Neuro: Negative for headache, weakness, numbness, tingling, and seizure, Psych: Negative for depression, anxiety, suicide ideation, homicidal ideation, and hallucinations, Allergy/Immunology: Negative for hives, rash, and allergies, Endocrine: Negative for neck swelling, polydipsia, polyuria, polyphagia, and marked weight changes, Hematologic/Lymphatic: Negative for swollen nodes, abnormal bleeding, and unusual bruising. 22:03 Abdomen/GI: Positive for abdominal pain, nausea and vomiting, diarrhea, of the right lower quadrant and left lower quadrant. 22:03 MS/extremity: Positive for decreased range of motion, pain, swelling, of the left knee. Exam: 22:03 Constitutional: This is a well developed, well nourished patient who is awake, alert, tram and in no acute distress. Head/Face: Normocephalic, atraumatic. Eyes: Pupils equal round and reactive to light, extra-ocular motions intact. Lids and lashes normal. Conjunctiva and sclera are non-icteric and not injected. Cornea within normal limits. Periorbital areas with no swelling, redness, or edema. ENT: Nares patent. No nasal discharge, no septal abnormalities noted. Tympanic membranes are normal and external auditory canals are clear. Oropharynx with no redness, swelling, or masses, exudates, or evidence of obstruction, uvula midline. Mucous membranes moist. Neck: Trachea midline, no thyromegaly or masses palpated, and no cervical lymphadenopathy. Supple, full range of motion without nuchal rigidity, or vertebral point tenderness. No Meningismus. Chest/axilla: Normal chest wall appearance and motion. Nontender with no deformity. No lesions are appreciated. Cardiovascular: Regular rate and rhythm with a normal S1 and S2. No gallops, murmurs, or rubs. Normal PMI, no JVD. No pulse deficits. Respiratory: Lungs have equal breath sounds bilaterally, clear to auscultation and percussion. No rales, rhonchi or wheezes noted. No increased work of breathing, no retractions or nasal flaring. Back: No spinal tenderness. No costovertebral tenderness. Full range of motion. Female : Normal external genitalia. Skin: Warm, dry with normal turgor. Normal color with no rashes, no lesions, and no evidence of cellulitis. Neuro: Awake and alert, GCS 15, oriented to person, place, time, and situation. Cranial nerves II-XII grossly intact. Motor strength 5/5 in all extremities. Sensory grossly intact. Cerebellar exam normal. Normal gait. Psych: Awake, alert, with orientation to person, place and time. Behavior, mood, and affect are within normal limits. 22:03 Abdomen/GI: Inspection: distension, Bowel sounds: normal, Palpation: mild abdominal tenderness, moderate abdominal tenderness, in the right lower quadrant and left lower quadrant, Liver: no appreciated palpable abnormalities, Hernia: not appreciated. 22:06 Musculoskeletal/extremity: Extremities: noted in the left knee: pain, swelling, tram tenderness, Circulation is intact in all extremities. Sensation intact. Compartment Syndrome exam of affected extremity: is normal. Joints: effusion, swelling, tenderness, DVT Exam: negative Homans' sign noted on exam, no appreciated bluish discoloration, no erythema, no increased warmth, pain, swelling, tenderness. 22:06 Musculoskeletal/extremity: Joints: the left knee displays tram Vital Signs: 20:54 BP 160 / 110; Pulse 120; Resp 19; Temp 99.6(O); Pulse Ox 100% on R/A; Weight 111.58 kg; la1 Height 5 ft. 4 in. (162.56 cm); 21:20 BP 162 / 91; Pulse 108; Resp 18; Pulse Ox 98% on R/A; ea 23:49 BP 133 / 75; Pulse 102; Resp 18 S; Pulse Ox 98% ; ea 10/01 00:30 BP 128 / 76; Pulse 103; Resp 18; Temp 100.3(O); Pulse Ox 97% ; ea 01:15 BP 122 / 70; Pulse 92; Resp 18; Pulse Ox 98% on R/A; ea 01:22 Temp 99.0(O); ea 09/30 20:54 Body Mass Index 42.23 (111.58 kg, 162.56 cm) la1 MDM: 09/30 22:03 Data reviewed: vital signs, nurses notes, lab test result(s), EKG, radiologic studies, [facility] CT scan, plain films. 22:05 Patient medically screened. [facility] 09/30 21:52 Order name: Amylase, Serum; Complete Time: 00:09 09/30 21:52 Order name: Basic Metabolic Panel; Complete Time: 00:09 09/30 21:52 Order name: CBC with Diff; Complete Time: 23:17 09/30 21:52 Order name: Hepatic Function; Complete Time: 00:09 09/30 21:52 Order name: Lipase; Complete Time: 00:09 09/30 21:52 Order name: Urine Microscopic Only; Complete Time: 23:17 09/30 22:01 Order name: Blood Culture Adult (2) [facility] 09/30 22:01 Order name: Sed Rate; Complete Time: 23:17 [facility] 09/30 22:02 Order name: Fecal Leukocyte Stain [facility] 09/30 22:02 Order name: Stool Culture [facility] 09/30 22:12 Order name: C-Reactive Protein; Complete Time: 00:09 [facility] 09/30 22:14 Order name: Urine Dipstick--Ancillary (enter results); Complete Time: 23:17 [facility] 09/30 21:31 Order name: XRAY Knee LEFT 2 view 09/30 21:52 Order name: IV Saline Lock; Complete Time: 22:13 09/30 21:52 Order name: Labs collected and sent; Complete Time: 22:13 09/30 21:52 Order name: Urine Dipstick-Ancillary (obtain specimen); Complete Time: 22:13 09/30 22:01 Order name: Chest Pa And Lat (2 Views) XRAY [facility] 09/30 22:01 Order name: CT Abd/Pelvis - W/Contrast [facility] 09/30 22:14 Order name: Urine --Ancillary (enter results); Complete Time: 23:17 [facility] 09/30 22:43 Order name: Urine Culture [facility] 09/30 23:27 Order name: CONS Physician Consult [facility] Administered Medications: 22:10 Drug: NS 0.9% 1000 ml Route: IV; Rate: 1 bolus; Site: right antecubital; 10/01 00:45 Follow up: Response: No adverse reaction; IV Status: Completed infusion ea 00:46 Follow up: IV Intake: 1000ml ea 00:07 Drug: levofloxacin 750 mg Volume: 150 ml; Route: IVPB; Infused Over: 90 mins; Site: ea right antecubital; 01:23 Follow up: Response: No adverse reaction; IV Status: Infusion continued upon admission ea 00:31 Drug: NS 0.9% with KCl 20 mEq/L 1000 ml Route: IV; Rate: 150 ml/hr; Site: right ea antecubital; 01:22 Follow up: IV Status: Infusion continued upon admission ea 00:40 Drug: Ibuprofen 600 mg Route: PO; ea 01:22 Follow up: Temp 99.0 Oral; Response: No adverse reaction; Temperature is decreased ea 00:45 Drug: Rocephin - (cefTRIAXone) 1 grams Route: IVPB; Infused Over: 30 mins; Site: right ea antecubital; :22 Follow up: Response: No adverse reaction; IV Status: Completed infusion ea Disposition: 09/30/17 23:21 Hospitalization ordered by Sherron Samuels for Observation. Preliminary diagnosis are Effusion, left knee, Fever, unspecified, Vomiting, Diarrhea, unspecified, Cystitis, Hypokalemia. - Bed requested for Telemetry/MedSurg (observation). - Status is Observation. ea - Condition is Stable. - Problem is new. - Symptoms have improved. UTI on Admission? Yes Signatures: Dispatcher [employer] [facility] Devi Molina RN RN mw Anderson, Corey, MD MD cha Attema, Lee RN RN laBrooke Oseguera RN RN ea Corrections: (The following items were deleted from the chart) 09/30 22:06 22:02 Knee Left 3 View+RAD.RAD.BRZ ordered. [facility] ED[facility] 22:12 22:01 C-REACTIVE PROTEIN+C.LAB.BRZ ordered. [facility] EDMS 22:30 21:53 Creatinine for Radiology+C.LAB.BRZ ordered. [facility] 23:23 23:21 Hospitalization Ordered by Sherron Samuels MD for Observation. Preliminary diagnosis is Effusion, left knee; Fever, unspecified; Vomiting; Diarrhea, unspecified; Cystitis. Bed requested for Telemetry/MedSurg (observation). Status is Observation. Condition is Stable. Problem is new. Symptoms have improved. UTI on Admission? Yes. tram 10/01 00:10 09/30 23:23 09/30/2017 23:21 Hospitalization Ordered by Sherron Samuels MD for [facility] Observation. Preliminary diagnosis is Effusion, left knee; Fever, unspecified; Vomiting; Diarrhea, unspecified; Cystitis. Bed requested for Telemetry/MedSurg (observation). Status is Observation. Condition is Stable. Problem is new. Symptoms have improved. UTI on Admission? Yes. melania 10/01 01:24 00:10 09/30/2017 23:21 Hospitalization Ordered by Sherron Samuels MD for Observation. ea Preliminary diagnosis is Effusion, left knee; Fever, unspecified; Vomiting; Diarrhea, unspecified; Cystitis; Hypokalemia. Bed requested for Telemetry/MedSurg (observation). Status is Observation. Condition is Stable. Problem is new. Symptoms have improved. UTI on Admission? Yes. [facility]
--- NOTE | 2017-09-30 23:23 | ER ---
Nurse's Notes [facility] Name: Elsy Lux Age: 32 yrs Sex: Female : 1985 Arrival Date: 09/30/2017 Time: 20:49 Bed 20 Private MD: Gloria López Diagnosis: Effusion, left knee;Fever, unspecified;Vomiting;Diarrhea, unspecified;Cystitis;Hypokalemia Presentation: 09/30 20:53 Presenting complaint: Patient states: I have had pain in my left knee for a few days la1 but today I started with a low grade fever and diarrhea. Transition of care: patient was not received from another setting of care. Onset of symptoms was September 30, 2017. Risk Assessment: Do you want to hurt yourself or someone else? Patient reports no desire to harm self or others. Initial Sepsis Screen: Does the patient meet any 2 criteria? No. Patient's initial sepsis screen is negative. Does the patient have a suspected source of infection? No. Patient's initial sepsis screen is negative. Care prior to arrival: None. 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 - Social history:: Smoking status: Patient/guardian denies using tobacco. - Ebola Screening: : No symptoms or risks identified at this time. Screenin:15 Abuse screen: Denies threats or abuse. Nutritional screening: No deficits noted. ea Tuberculosis screening: No symptoms or risk factors identified. Fall Risk None identified. Assessment: 21:15 General: Appears uncomfortable, Behavior is calm, cooperative, appropriate for age. ea Pain: Complains of pain in left knee Pain does not radiate. Pain currently is 7 out of 10 on a pain scale. Neuro: Level of Consciousness is awake, alert, obeys commands, Oriented to person, place, time, situation. Cardiovascular: Heart tones S1 S2 present Patient's skin is warm and dry. Respiratory: Airway is patent Respiratory effort is even, unlabored, Respiratory pattern is regular, symmetrical, Breath sounds are clear bilaterally. GI: Abdomen is obese, Bowel sounds present X 4 quads. Abd is soft and non tender X 4 quads. GI: Reports diarrhea. : No signs and/or symptoms were reported regarding the genitourinary system. EENT: No signs and/or symptoms were reported regarding the EENT system. Derm: Skin is dry, Skin is normal, Skin temperature is warm. Musculoskeletal: Circulation, motion, and sensation intact. 22:25 Reassessment: Patient and/or family updated on plan of care and expected duration. Pain ea level reassessed. Patient is alert, oriented x 3, equal unlabored respirations, skin warm/dry/pink. Taken to radiology. 23:48 Reassessment: Patient and/or family updated on plan of care and expected duration. Pain ea level reassessed. Patient is alert, oriented x 3, equal unlabored respirations, skin warm/dry/pink. 10/01 00:20 Reassessment: Report called to July on fourth floor. ea 00:35 Reassessment: Patient and/or family updated on plan of care and expected duration. Pain ea level reassessed. Patient is alert, oriented x 3, equal unlabored respirations, skin warm/dry/pink. 00:50 Reassessment: pt taken to CT. ea 01:21 Reassessment: Patient and/or family updated on plan of care and expected duration. Pain ea level reassessed. Patient is alert, oriented x 3, equal unlabored respirations, skin warm/dry/pink. Pt transferred to fourth floor via wheelchair per tech. Vital Signs: 09/30 20:54 BP 160 / 110; Pulse 120; Resp 19; Temp 99.6(O); Pulse Ox 100% on R/A; Weight 111.58 kg; la1 Height 5 ft. 4 in. (162.56 cm); 21:20 BP 162 / 91; Pulse 108; Resp 18; Pulse Ox 98% on R/A; ea 23:49 BP 133 / 75; Pulse 102; Resp 18 S; Pulse Ox 98% ; ea 10/01 00:30 BP 128 / 76; Pulse 103; Resp 18; Temp 100.3(O); Pulse Ox 97% ; ea 01:15 BP 122 / 70; Pulse 92; Resp 18; Pulse Ox 98% on R/A; ea 01:22 Temp 99.0(O); ea 09/30 20:54 Body Mass Index 42.23 (111.58 kg, 162.56 cm) la1 ED Course: 09/30 20:49 Patient arrived in ED. ds1 20:49 Gloria López MD is Private Physician. ds1 20:54 Triage completed. la1 20:55 Arm band placed on left wrist. la1 20:59 Brooke Moya, RN is Primary Nurse. ea 21:15 Patient has correct armband on for positive identification. Bed in low position. Call ea light in reach. Side rails up X 1. 21:34 Extremity injury workup initiated per nursing protocol. ea 21:56 XRAY Knee LEFT 2 view In Process Unspecified. EDMS 21:58 Kyle Fischer MD is Attending Physician. tram 22:04 Inserted saline lock: 20 gauge in right antecubital area, using aseptic technique. ea Blood collected. 22:29 Chest Pa And Lat (2 Views) XRAY In Process Unspecified. EDMS 23:19 Sherron Samuels MD is Hospitalizing Provider. [facility] 08 00:[address] via wheelchair. kw1 00:57 CT completed. Patient tolerated procedure well. Patient moved back from CT. kw1 00:58 No provider procedures requiring assistance completed. Patient admitted, IV remains in ea place. Administered Medications: 09/30 22:10 Drug: NS 0.9% 1000 ml Route: IV; Rate: 1 bolus; Site: right antecubital; ea 10/01 00:45 Follow up: Response: No adverse reaction; IV Status: Completed infusion ea 00:46 Follow up: IV Intake: 1000ml ea 00:07 Drug: levofloxacin 750 mg Volume: 150 ml; Route: IVPB; Infused Over: 90 mins; Site: ea right antecubital; 01:23 Follow up: Response: No adverse reaction; IV Status: Infusion continued upon admission ea 00:31 Drug: NS 0.9% with KCl 20 mEq/L 1000 ml Route: IV; Rate: 150 ml/hr; Site: right ea antecubital; :22 Follow up: IV Status: Infusion continued upon admission ea 00:40 Drug: Ibuprofen 600 mg Route: PO; ea :22 Follow up: Temp 99.0 Oral; Response: No adverse reaction; Temperature is decreased ea 00:45 Drug: Rocephin - (cefTRIAXone) 1 grams Route: IVPB; Infused Over: 30 mins; Site: right ea antecubital; 01:22 Follow up: Response: No adverse reaction; IV Status: Completed infusion Intake: 00:46 IV: 1000ml; Total: 1000ml. Outcome: 09/30 23:21 Decision to Hospitalize by Provider. tram 10/01 00:00 Instructed on the need for admit. leia 01:20 Admitted to Med/surg accompanied by tech, room 424, with chart, Report called to July dupree RN 01:20 Condition: stable ea 01:24 Patient left the ED. leia Signatures: Dispatcher [employer] EDMS Kyle Fischer MD MD cha Sanford, Demi ds1 Morro Yoon RN RN Brooke Maldonado RN RN Cary Connolly kw1 Corrections: (The following items were deleted from the chart) 01:21 01:20 Admitted to leia dupree
[2017-10-01] MEDS ORDERED: Levofloxacin 750mg IV 750 MG/150 ML BAG IV ONE (00:04)
[2017-10-01] MEDS ORDERED: CEFTRIAXONE/SWI 1gm 1 GM/10 ML SYR ONE (00:04)
[2017-10-01] MEDS ORDERED: NS KCL 20MEQ 1,000 ML IV ONE (00:20)
[2017-10-01] MEDS ORDERED: ALPRAZOLAM 0.25 MG TABLET PO PRN (00:33)
[2017-10-01] MEDS ORDERED: MAGNESIUM HYDROXIDE 8% 30 ML PO PRN (00:33)
[2017-10-01] MEDS ORDERED: ACETAMINOPHEN 500 MG TAB PO PRN (00:33)
[2017-10-01] MEDS ORDERED: MORPHINE 2 MG/ML SYR IV PRN (00:35)
[2017-10-01] MEDS ORDERED: HYDROCODONE/APAP 5/325 MG TAB PO PRN (00:35)
[2017-10-01] MEDS ORDERED: IBUPROFEN 400 MG TAB ONE (00:38)
[2017-10-01] MEDS ORDERED: IBUPROFEN 200 MG TAB PO ONE (00:39)
[2017-10-01] MEDS ORDERED: VANCOMYCIN 1.25 GM in NA CHLORIDE 0.9% 250 ML IVPB SCH (01:00)
[2017-10-01] MEDS ORDERED: VANCOMYCIN 2 GM in NA CHLORIDE 0.9% 500 ML IVPB SCH (01:00)
[2017-10-01 01:37] VITALS: BMI 42.5
[2017-10-01] MEDS: ONDANSETRON 4 MG/2 ML VIAL IV PRN (01:59)
[2017-10-01] MEDS: NA CHLORIDE 0.9% 1,000 ML IV SCH ×3 (01:59→20:30)
[2017-10-01] MEDS ORDERED: VANCOMYCIN 1 GM/VIAL ONE (02:01)
[2017-10-01] MEDS ORDERED: NA CHLORIDE 0.9% 500 ML ONE (02:01)
[2017-10-01 06:32] LABS: Absolute Lymphocytes (CBC) 1.1 K/uL (0.7-4.9); Absolute Monocytes 0.4 K/uL (0.1-1.3); Absolute Neutrophil 3.8 K/uL (1.8-8.0); Basophils % 0.2 % (0-1.3); Eosinophils % 0.8 % (0-4.4); Hematocrit 31.5 % (36.0-45.0); Lymphocytes % 20.2 % (15.3-44.8); MCH 23.2 pg (27.0-35.0); MCV 70.8 fL (80-100); MPV 8.1 fL (7.6-11.3); Monocytes % 7.5 % (3.3-12.3); RBC Red Blood Cell Count 4.45 M/uL (3.86-4.86)
[2017-10-01 06:53] LABS: Albumin 3.1 g/dL (3.4-5.0); Bilirubin Total 0.3 mg/dL (0.2-1.0); Magnesium 1.8 mg/dL (1.8-2.4); Phosphorus 3.7 mg/dL (2.5-4.9); Potassium 3.1 mmol/L (3.5-5.1); Protein, Total 7.4 g/dL (6.4-8.2)
[2017-10-01] MEDS ORDERED: POTASSIUM CL SA 10 MEQ TAB PO ONE ×2 (08:00→16:00)
[2017-10-01] MEDS ORDERED: MAGNESIUM SULFATE 1 gm IVPB 1 GM/100 ML BAG IV ONE (08:00)
--- NOTE | 2017-10-01 08:28 | RAD REPORT ---
EXAM DESCRIPTION: RAD - Knee Left 2 View - 09/30/2017 9:59 pm CLINICAL HISTORY: Left knee pain and swelling FINDINGS: No fracture or dislocation is seen. Edema is present within the subcutaneous tissues. Mild medial joint space narrowing is noted.
[2017-10-01] MEDS ORDERED: LOPERAMIDE HCL 2 MG CAPSULE PO STA (08:30)
--- NOTE | 2017-10-01 08:33 | P.HP ---
Certification for Inpatient Patient admitted to: Observation With expected LOS: <2 Midnights Patient will require the following post-hospital care: None Practitioner: I am a practitioner with admitting privileges, knowledge of patient current condition, hospital course, and medical plan of care. Services: Services provided to patient in accordance with Admission requirements found in Title 42 Section 412.3 of the Code of Federal Regulations Patient History Date of Service: 09/30/17 Reason for admission: Abdominal pain; diarrhea; dysuria History of Present Illness: Patient is a 32-year-old female who came into the hospital with abdominal discomfort. She has been having diarrhea since 4:00 p.m.. Her symptoms have not been improving. She has also has some dysuria. She came to the hospital because she started having some back tenderness as well as lower quadrant pain. Her diarrhea was not improving. She was admitted to the hospital for further evaluation. In the emergency room she had a workup done in her CT scan report reveals cystitis. Questionable colitis findings around the rectosigmoid region. At this time will admit her to the hospital and start her on IV antibiotic therapy. Will hydrate her aggressively as well. Will check her stools as well as urine cultures. Hopefully her symptoms start improving. I think she should improve fairly quickly as she is fairly young. It seems like she has a viral gastroenteritis with the secondary urinary tract infection. She will be admitted for observation. Allergies lisinopril Allergy (Severe, Verified 10/01/17 03:34) Anaphylaxis meperidine [From Demerol] Allergy (Verified 10/01/17 03:34) Nausea/Vomiting Home Medications: Norgestimate-Ethinyl Estradiol [Sprintec 28 Day Tablet] 1 each PO DAILY Amlodipine [Norvasc*] 5 mg PO DAILY 06/23/17 hydroCHLOROthiazide [Hydrochlorothiazide*] 12.5 mg PO DAILY #30 cap 06/24/17 - Past Medical/Surgical History Has patient received pneumonia vaccine in the past: No Diabetic: No -: HTN -: NIDDM -: D&C -: Hysteroscopy - Family History Father Medical History: Hypertension Mother Medical History: Seizures - Social History Smoking Status: Never smoker Alcohol use: No CD- Drugs: No Caffeine use: Yes Place of Residence: Home Review of Systems 10-point ROS is otherwise unremarkable Physical Examination - Vital Signs Temperature: 97.0 F Blood Pressure: 141/81 Pulse: 88 Respirations: 18 Pulse Ox (%): 100 - Physical Exam General: Alert, In no apparent distress, Oriented x3 HEENT: Atraumatic, PERRLA, Mucous membr. moist/pink, EOMI, Sclerae nonicteric Neck: Supple, 2+ carotid pulse no bruit, No LAD, Without JVD or thyroid abnormality Respiratory: Clear to auscultation bilaterally, Normal air movement Cardiovascular: Regular rate/rhythm, Normal S1 S2, No murmurs Gastrointestinal: Normal bowel sounds, Soft and benign, Non-distended, Tenderness ( Right flank and suprapubic region) Musculoskeletal: No clubbing, No swelling, No tenderness Integumentary: No rashes Neurological: Normal gait, Normal speech, Normal strength at 5/5 x4 extr, Normal tone, Sensation intact, Cranial nerves 3-12 intact, Normal affect Lymphatics: No axilla or inguinal lymphadenopathy - Studies Laboratory Data (last 24 hrs) 09/30/17 22:05: WBC 7.5, Hgb 10.7 L, Hct 32.6 L, Plt Count 464 H 09/30/17 22:05: Sodium 136, Potassium 3.4 L, BUN 14, Creatinine 1.10, Glucose 105, Total Bilirubin 0.3, AST 15, ALT 24, Alkaline Phosphatase 69, Amylase 39, Lipase 100 09/30/17 21:52: Creatinine Cancelled Assessment & Plan - Problems (Diagnosis) (1) Diarrhea Current Visit: Yes Status: Acute (2) Urinary tract infection Current Visit: Yes Status: Acute (3) Abdominal pain Current Visit: Yes Status: Acute - Plan Plan: 1. Aggressive IV hydration 2. stool studies 3. Urine cultures 4. IV antibiotic therapy 5. Pain control 6. GI and DVT prophylaxis Discharge Plan: Home Plan to discharge in: 48 Hours - Advance Directives Does patient have a Living Will: No Does patient have a Durable POA for Healthcare: No - Code Status/Comfort Care Code Status Assessed: Yes Code Status: Full Code Critical Care: No Time Spent Managing PTS Care (In Minutes): 50
[2017-10-01] MEDS: ENOXAPARIN 40 MG/0.4 ML SQ SCH (08:41)
[2017-10-01] MEDS: AMLODIPINE 5 MG TAB PO SCH (08:42)
[2017-10-01] MEDS ORDERED: METHYLPREDNISOLONE 125 MG INJ IV ONE (09:00)
--- NOTE | 2017-10-01 09:37 | RAD REPORT ---
EXAM DESCRIPTION: Deloris Hernández (2 Views)09/30/2017 10:32 pm CLINICAL HISTORY: Cough COMPARISON: None FINDINGS: The lungs appear clear of acute infiltrate. The heart is mildly enlarged IMPRESSION: No acute abnormalities displayed
--- NOTE | 2017-10-01 09:37 | RAD REPORT ---
EXAM DESCRIPTION: CT - Abdomen Pelvis W Contrast - 10/01/2017 7:01 am CLINICAL HISTORY: Abdominal pain. Diarrhea today COMPARISON: May 2017 TECHNIQUE: Computed axial tomography of the abdomen and pelvis was obtained. 100 cc Isovue-300 is ad ministered intravenously. Oral contrast was given. All CT scans are performed using dose optimization technique as appropriate and may include automated exposure control or mA/KV adjustment according to patient size. FINDINGS: The liver, spleen, pancreas, adrenals and kidneys appear unremarkable. The appendix is normal caliber. There is no evidence of diverticulitis Spondylolysis involves L5. A tiny umbilical hernia is present IMPRESSION: No acute abnormality is displayed
--- NOTE | 2017-10-01 14:07 | CON ---
Date of Consultation: 10/01/2017 Additional Attending Physician: Dr. Samuels. Reason For Consultation: Left knee pain. History Of Present Illness: Elsy is a 32-year-old female who presented to the ER yesterday with abd ominal pain, diarrhea, and dysuria. She states that her symptoms have been going on since earlier in the day and was brought to the emergency room for further evaluation. She has been admitted to the floor for hydration and IV antibiotic therapy. She does report history of left knee pain that has be en going on for the last 1-2 weeks. She also reports swelling of her left knee. She denies any hist ory of gout or rheumatoid arthritis. She is able to walk on her left knee, but she does state that s he has been limping secondary to the pain and swelling. She denies any particular injury to her left knee. Past Medical History: Hypertension and diabetes. Past Surgical History: Includes hysteroscopy and D and C. Home Medications: Sprintec, amlodipine, hydrochlorothiazide. Allergies: LISINOPRIL, MEPERIDINE. Social History: Denies tobacco or alcohol use. Family History: Positive for hypertension on her father's side, and mother with a history of seizure s. Physical Examination: General: No apparent distress. HEENT: Normocephalic, atraumatic. Neck: Supple. Cardiovascular: Brisk cap refill to all digits. Chest: Nonlabored breathing. Psychiatric: Responsive to exam. Musculoskeletal: Left lower extremity, she does have a [id number]-lamuxxli effusion of her left knee. No erythema, induration noted to her left knee. She has range of motion from 0-90 degrees without pa in. No pain with heel tap. Neurovascular: Intact distally. Assessment And Plan: Ms. Lux is a 32-year-old female with left knee pain, effusion, likely synovi tis. Based on her exam and her range of motion it is not consistent with a septic joint. Recommend conservative treatment measures including ice and anti-inflammatories versus corticosteroid as she ca n tolerate with her ongoing GI symptoms. She may be weightbearing as tolerated on her left lower ext remity and she may follow up in my clinic in 1 week for re-evaluation. CV/MODL Voice ID: [id number] Report ID: [id number]
--- NOTE | 2017-10-01 15:44 | P.PN ---
Subjective Date of Service: 10/01/17 Chief Complaint: Abdominal pain; diarrhea; dysuria Subjective: No C/O voiced, Tolerating diet (Diarrhea better now.), Ambulating, Improving, Doing well Review of Systems General: As per HPI Physical Examination - Vital Signs Temperature: 97.9 F Blood Pressure: 149/97 Pulse: 80 Respirations: 18 Pulse Ox (%): 99 - Physical Exam General: Alert, In no apparent distress, Oriented x3 HEENT: Atraumatic Neck: Supple, JVD not distended Respiratory: Clear to auscultation bilaterally, Normal air movement Cardiovascular: Regular rate/rhythm, Normal S1 S2 Gastrointestinal: Normal bowel sounds, Tenderness (Slight tenderness on LLQ) Musculoskeletal: Other (Left Knee Swelling with Painfull ROM. ) Integumentary: No rashes Neurological: Normal speech, Normal tone, Normal affect Lymphatics: No axilla or inguinal lymphadenopathy - Studies Laboratory Data (last 24 hrs) 09/30/17 22:05: WBC 7.5, Hgb 10.7 L, Hct 32.6 L, Plt Count 464 H 09/30/17 22:05: Sodium 136, Potassium 3.4 L, BUN 14, Creatinine 1.10, Glucose 105, Total Bilirubin 0.3, AST 15, ALT 24, Alkaline Phosphatase 69, Amylase 39, Lipase 100 09/30/17 21:52: Creatinine Cancelled Microbiology Data (last 24 hrs): 09/30/17 23:12 Stool Fecal Leukocyte Stain - Final Medications List Reviewed: Yes Assessment & Plan - Problems (Diagnosis) (1) Diarrhea Current Visit: Yes Status: Acute Plan: Pt with Profuse Diarrhea. Now improving. Most likely viral Gastroenteritis -IV fluids for now -I&O Qualifiers: Diarrhea type: presumed infectious Qualified Code(s): R19.7 - Diarrhea, unspecified (2) Urinary tract infection Current Visit: Yes Status: Acute Plan: UA concerning for UTI -Urine culture pending -IV rocephin for now Qualifiers: Urinary tract infection type: acute cystitis Hematuria presence: without hematuria Qualified Code(s): N30.00 - Acute cystitis without hematuria (3) Knee swelling Current Visit: Yes Status: Acute Plan: Knee swelling most likely synovitis -Ortho consulted. Appreciate Reccs -Ibuprofen for now (4) HTN (hypertension) Current Visit: Yes Status: Chronic Qualifiers: Hypertension type: essential hypertension Qualified Code(s): I10 - Essential (primary) hypertension Discharge Plan: Home Plan to discharge in: 48 Hours - Code Status/Comfort Care Code Status Assessed: Yes Critical Care: No
[2017-10-01] MEDS: Levofloxacin500mg IV 500 MG/100 ML BAG IV SCH (20:26)
[2017-10-01] MEDS ORDERED: MAGNES/ALUMIN/SIMET 30ML UCUP PO ONE (21:38)
[2017-10-02] MEDS: NA CHLORIDE 0.9% 1,000 ML IV SCH ×4 (02:27→21:10)
[2017-10-02 05:41] LABS: Absolute Monocytes 0.9 K/uL (0.1-1.3); Absolute Neutrophil 5.2 K/uL (1.8-8.0); Basophils % 0.2 % (0-1.3); Eosinophils % 0.2 % (0-4.4); Hematocrit 31.5 % (36.0-45.0); Lymphocytes % 24.8 % (15.3-44.8); MCH 22.9 pg (27.0-35.0); MCV 70.7 fL (80-100); MPV 7.8 fL (7.6-11.3); Monocytes % 10.9 % (3.3-12.3); RBC Red Blood Cell Count 4.45 M/uL (3.86-4.86)
[2017-10-02 05:59] LABS: ALT/SGPT 19 U/L (12-78); AST/SGOT 10 U/L (15-37); Alkaline Phosphatase 67 U/L (45-117); BUN Blood Urea Nitrogen 10 mg/dL (7-18); Bicarbonate 27 mmol/L (21-32); Bilirubin Total 0.1 mg/dL (0.2-1.0); Glucose Level 120 mg/dL (74-106); Magnesium 2.3 mg/dL (1.8-2.4); Phosphorus 2.8 mg/dL (2.5-4.9); Potassium 3.7 mmol/L (3.5-5.1); Protein, Total 7.1 g/dL (6.4-8.2); Sodium Level 142 mmol/L (136-145)
[2017-10-02] MEDS ORDERED: POTASSIUM CL SA 10 MEQ TAB PO ONE (06:30)
[2017-10-02] MEDS: AMLODIPINE 5 MG TAB PO SCH (08:32)
[2017-10-02] MEDS: ENOXAPARIN 40 MG/0.4 ML SQ SCH (08:32)
--- NOTE | 2017-10-02 11:10 | P.PN ---
Subjective Date of Service: 10/02/17 Chief Complaint: left knee pain Subjective: Improving (Left knee pain feeling better this morning) Physical Examination - Vital Signs Temperature: 98.1 F Blood Pressure: 133/89 Pulse: 85 Respirations: 20 Pulse Ox (%): 98 - Physical Exam General: Alert, In no apparent distress Musculoskeletal: Other (LLE: mild swelling; no pain with ROM of the left knee; NVI distally) - Studies Microbiology Data (last 24 hrs): 09/30/17 23:12 Stool Fecal Leukocyte Stain - Final Medications List Reviewed: Yes Assessment And Plan - Plan Elsy is a 32 yo female with resolving left knee synovitis -may continue with NSAIDs as needed -discussed with patient to ice and use compression wrap as needed -may f/u in my clinic if she has continued pain/symptoms
--- NOTE | 2017-10-02 11:45 | P.PN ---
Subjective Date of Service: 10/02/17 Chief Complaint: left knee pain Subjective: No C/O voiced, Tolerating diet, Ambulating, Working w/ PT, Doing well Review of Systems General: As per HPI Physical Examination - Vital Signs Temperature: 98.1 F Blood Pressure: 133/89 Pulse: 85 Respirations: 20 Pulse Ox (%): 98 - Physical Exam General: Alert, In no apparent distress, Oriented x3 HEENT: Atraumatic, PERRLA, EOMI Neck: Supple, JVD not distended Respiratory: Clear to auscultation bilaterally, Normal air movement Cardiovascular: Regular rate/rhythm, Normal S1 S2 Gastrointestinal: Normal bowel sounds, No tenderness Musculoskeletal: No tenderness Integumentary: No rashes Neurological: Normal speech, Normal tone, Normal affect Lymphatics: No axilla or inguinal lymphadenopathy - Studies Microbiology Data (last 24 hrs): 09/30/17 23:12 Stool Fecal Leukocyte Stain - Final Medications List Reviewed: Yes Assessment & Plan - Problems (Diagnosis) (1) Diarrhea Current Visit: Yes Status: Acute Plan: Pt with Profuse Diarrhea. Now improving. Most likely viral Gastroenteritis -IV fluids for now. -Still having Diarrhea but improving 1 to 3 epsiodes overnight -I&O Qualifiers: Diarrhea type: presumed infectious Qualified Code(s): R19.7 - Diarrhea, unspecified (2) Urinary tract infection Current Visit: Yes Status: Acute Plan: UA concerning for UTI -Urine culture pending. Resend with straight Cath -IV rocephin for now Qualifiers: Urinary tract infection type: acute cystitis Hematuria presence: without hematuria Qualified Code(s): N30.00 - Acute cystitis without hematuria (3) Knee swelling Current Visit: Yes Status: Acute Plan: Knee swelling most likely synovitis -Ortho consulted. Appreciate Reccs -Ibuprofen for now (4) HTN (hypertension) Current Visit: Yes Status: Chronic Qualifiers: Hypertension type: essential hypertension Qualified Code(s): I10 - Essential (primary) hypertension Discharge Plan: Home Plan to discharge in: 24 Hours - Code Status/Comfort Care Code Status Assessed: Yes Critical Care: No
[2017-10-02 15:40] LABS: Urine Appearance CLEAR; Urine Bilirubin NEGATIVE (NEG); Urine Blood 3+ (NEG); Urine Color YELLOW; Urine Glucose NEGATIVE (NEG); Urine Protein NEGATIVE (NEG); Urine Specific Gravity <=1.005 (1.005-1.030); Urine Urobilinogen 0.2 mg/dL (0.2-1.0)
[2017-10-02 16:40] LABS: Urine Bacteria <20 /HPF (<20); Urine Culture Reflex Order NOT NEEDED; Urine RBC 20-50 /HPF (NONE SEEN)
[2017-10-02] MEDS: Levofloxacin500mg IV 500 MG/100 ML BAG IV SCH (21:08)
[2017-10-02 22:41] VITALS: O2SAT 98
[2017-10-03] MEDS: NA CHLORIDE 0.9% 1,000 ML IV SCH (03:00)
[2017-10-03] MEDS: ONDANSETRON 4 MG/2 ML VIAL IV PRN (03:56)
[2017-10-03 06:20] LABS: BUN Blood Urea Nitrogen 8 mg/dL (7-18); Bicarbonate 27 mmol/L (21-32); Glucose Level 98 mg/dL (74-106); Potassium 3.6 mmol/L (3.5-5.1); Sodium Level 140 mmol/L (136-145)
[2017-10-03] MEDS ORDERED: POTASSIUM CL SA 10 MEQ TAB PO ONE (07:00)
[2017-10-03] MEDS: AMLODIPINE 5 MG TAB PO SCH (09:38)
[2017-10-03] MEDS: ENOXAPARIN 40 MG/0.4 ML SQ SCH (09:38)
[2017-10-03 12:29] VITALS: BP 147/87; TEMP 98.1
--- NOTE | 2017-10-03 15:41 | P.DS ---
Admission Date: 09/30/17 Discharge Date: 10/03/17 Disposition: ROUTINE DISCHARGE Reason for Admission: left knee pain - Problems (1) Diarrhea Onset Date: 10/03/17 Status: Acute Qualifiers: Diarrhea type: presumed infectious Qualified Code(s): R19.7 - Diarrhea, unspecified (2) Urinary tract infection Onset Date: 10/03/17 Status: Acute Qualifiers: Urinary tract infection type: acute cystitis Hematuria presence: without hematuria Qualified Code(s): N30.00 - Acute cystitis without hematuria (3) Knee swelling Onset Date: 10/03/17 Status: Acute (4) HTN (hypertension) Onset Date: 10/03/17 Status: Chronic Qualifiers: Hypertension type: essential hypertension Qualified Code(s): I10 - Essential (primary) hypertension Brief History of Present Illness: History of Present Illness: Patient is a 32-year-old female who came into the hospital with abdominal discomfort. She has been having diarrhea since 4:00 p.m.. Her symptoms have not been improving. She has also has some dysuria. She came to the hospital because she started having some back tenderness as well as lower quadrant pain. Her diarrhea was not improving. She was admitted to the hospital for further evaluation. In the emergency room she had a workup done in her CT scan report reveals cystitis. Questionable colitis findings around the rectosigmoid region. At this time will admit her to the hospital and start her on IV antibiotic therapy. Will hydrate her aggressively as well. Will check her stools as well as urine cultures. Hopefully her symptoms start improving. I think she should improve fairly quickly as she is fairly young. It seems like she has a viral gastroenteritis with the secondary urinary tract infection. She will be admitted for observation. Hospital Course: Overall during the hospital stay patient remained stable The patient was initially admitted to the hospital for diarrhea most likely secondary to viral gastroenteritis. Patient was started on IV fluids and had resolution of her diarrhea and her abdominal pain and her other symptoms. Patient that was advanced to a clear liquid diet and then a full liquid diet which she tolerated well as well. While here in the hospital patient was also found to have a urinary tract infection which was initially treated with IV Rocephin and patient was discharged home on PO Levaquin. Initial urine culture was negative for contaminant with mixed deja as resolves however repeat UA was done which was negative for any growth however this could be falsely negative due to patient already starting antibiotic therapy before the culture was collected. Patient thus was discharged home on Levaquin to be taken for total of 10 days and patient was to follow up with her primary care provider for that. While here in the hospital patient was also noted to have left knee swelling orthopedic was consulted who diagnosed patient with reactive synovitis. Patient was started on ibuprofen had improvement in her symptoms and thus was discharged home under stable condition. Patient was asked to follow up with primary care provider an orthopedic in 1-2 weeks post discharge. Patient was given a prescription for Levaquin to go home with for total of 10 days. Vital Signs/Physical Exam: Temp Pulse Resp BP Pulse Ox 98.1 F 89 20 147/87 H 92 10/03/17 12:00 10/03/17 12:00 10/03/17 12:00 10/03/17 12:00 10/03/17 12:00 General: Alert, In no apparent distress HEENT: Atraumatic, PERRLA, EOMI Neck: Supple, JVD not distended Respiratory: Clear to auscultation bilaterally, Normal air movement Cardiovascular: Regular rate/rhythm, Normal S1 S2 Gastrointestinal: Normal bowel sounds, No tenderness Musculoskeletal: No tenderness Integumentary: No rashes Neurological: Normal speech, Normal tone, Normal affect Lymphatics: No axilla or inguinal lymphadenopathy Laboratory Data at Discharge: WBC 8.2 K/uL (4.3-10.9) D 10/02/17 05:25 Hgb 10.2 g/dL (12.0-15.0) L 10/02/17 05:25 Hct 31.5 % (36.0-45.0) L 10/02/17 05:25 Plt Count 454 K/uL (152-406) H 10/02/17 05:25 Sodium 140 mmol/L (136-145) 10/03/17 05:30 Potassium 3.6 mmol/L (3.5-5.1) 10/03/17 05:30 BUN 8 mg/dL (7-18) 10/03/17 05:30 Creatinine 0.80 mg/dL (0.55-1.3) 10/03/17 05:30 Glucose 98 mg/dL (74-106) 10/03/17 05:30 Phosphorus 2.8 mg/dL (2.5-4.9) 10/02/17 05:25 Magnesium 2.3 mg/dL (1.8-2.4) D 10/02/17 05:25 Total Bilirubin 0.1 mg/dL (0.2-1.0) L 10/02/17 05:25 AST 10 U/L (15-37) L 10/02/17 05:25 ALT 19 U/L (12-78) 10/02/17 05:25 Alkaline Phosphatase 67 U/L (45-117) 10/02/17 05:25 Amylase 39 U/L (25-115) 09/30/17 22:05 Lipase 100 U/L (73-393) 09/30/17 22:05 Home Medications: Norgestimate-Ethinyl Estradiol [Sprintec 28 Day Tablet] 1 each PO DAILY Amlodipine [Norvasc*] 5 mg PO DAILY 06/23/17 hydroCHLOROthiazide [Hydrochlorothiazide*] 12.5 mg PO DAILY #30 cap 06/24/17 Levofloxacin [Levaquin] 500 mg PO DAILY 10 Days #10 tablet 10/03/17 New Medications: Levofloxacin [Levaquin] 500 mg PO DAILY 10 Days #10 tablet Followup: Darcie Davis MD [PROVISIONAL ASSOCIATE ACTIVE] - Gloria López MD [Primary Care Provider] - Vadim Vaca MD [ACTIVE - CAN ADMIT] -
== END 2017-10-03 12:50 | disposition home or self-care (01) ==
LOC: ER 20:47 → ERHOLD 23:23 → 4TH 10-01 00:58
PROVIDERS: ADMIT Hospitalist; ATTEND Hospitalist
DX: R19.7 Diarrhea, unspecified (principal); N30.00 Acute cystitis without hematuria; M65.862 Other synovitis and tenosynovitis, left lower leg; I10 Essential (primary) hypertension; E11.9 Type 2 diabetes mellitus without complications
CPT/HCPCS: 36415; 71046; 74177; 80048; 80053; 80076; 81001; 81003; 81015; 81025; 82150; 83690; 83735; 84100; 84132; 85025; 85652; 86140; 87040; 87045; 87046; 87086; 87088; 87493; 89055; 96361; 96365; 96368; 99285; G0378; J0696; J1650; J2270; J2405; J2930; J3475; J7030; Q9967

== ENCOUNTER 2018-05-18 08:20 | Emergency (ER) | payer OTHER ==
--- OUTSIDE RECORDS SUMMARY | 2018-05-18 08:22 | XMS REPORT ---
:1985 Author Organization [employer] Care Team Providers Name Role Phone Gloria López Provider Role Unavailable Allergies, Adverse Reactions, Alerts Substance Reaction Event Type Royal Inhibitor swelling of lips Drug Allergy Problems Problem Type Condition Code Onset Dates Condition Status Problem Diabetes E11.9 Active Problem Morbid obesity E66.01 Active Problem Urinary tract infection, site not N39.0 Active specified Problem Hematuria, unspecified R31.9 Active Problem Abnormal menses N92.6 Active Problem Uncontrolled type 2 diabetes E11.65 Active mellitus without complication, without long-term current use of insulin Problem Hypertension, unspecified type I10 Active Problem Acute pain of left knee M25.562 Active Problem Swelling of left knee joint M25.462 Active Assessment Abnormal menses N92.6 Active Assessment Follow-up exam Z09 Active Assessment Swelling of left knee joint M25.462 Active Assessment Acute pain of left knee M25.562 Active Assessment Hematuria, unspecified R31.9 Active Assessment Uncontrolled type 2 diabetes E11.65 Active mellitus without complication, without long-term current use of insulin Assessment Urinary tract infection, site not N39.0 Active specified Assessment Hypertension, unspecified type I10 Active Medications Medication Code Code Instructions Start End Status Dosage System Date Date Lancets [facility] [id number] - subcutaneous July 04, Active as Test BS once 2018 directed daily (dispense lancets formulary to [facility] [place] ) Blood Glucose Test ND 0 as directed July 04, Active As Strip Test BS once 2018 directed daily (DISPENSE TESTING STRIPS FORMULARY TO INSURANCE) Flagyl [facility] 12681708629 500 MG Orally Active 2 tablets for 10 days PredniSONE ND 17793816721 20 MG Orally Active 1 tablet Once a day Sprintec 28 [facility] 23231843143 0.25-35 MG-MCG Active 1 tablet Orally Once a day Metformin HCl [facility] 58251288770 500 MG Orally Active 1 tablet Once daily with a meal Hydrochlorothiazide [facility] 49401057274 12.5 MG Orally Active 1 tablet Once daily in the morning Amlodipine Besylate [facility] 70337895533 5 MG Orally Active 1 tablet Once daily Fluconazole [facility] 29667458909 150 MG Orally Active 1 tablet Once a week Blood Glucose Monitor NDC 0 as directed July 04, Active As Test BS once 2017 directed daily (DISPENSE BLOOD GLUCOSE MONITOR FORMULARY TO INSURANCE) Alyssa [facility] 81962471804 50 MG Orally July 04, Active 1 tablet Once a day 2017 Results No Known Results Summary Purpose [employer] Submission
--- OUTSIDE RECORDS SUMMARY | 2018-05-18 08:22 | XMS REPORT ---
:1985 Author Organization [employer] Care Team Providers Name Role Phone Gloria López Provider Role Unavailable Allergies No Known Allergies Problems Problem Type Condition Code Onset Dates [...] Swelling of left knee joint M25.462 Active Medications No Known Medications Results No Known Results Summary Purpose [employer] Submission
--- OUTSIDE RECORDS SUMMARY | 2018-05-18 08:23 | XMS REPORT ---
:1985 Author Organization [employer] Care Team Providers Name Role Phone Vadim Vaca Provider Role Unavailable Allergies, Adverse Reactions, Alerts Substance Reaction Event Type Royal Inhibitor swelling of lips Drug Allergy Problems Problem Type Condition Code Onset Dates Condition Status Problem Diabetes E11.9 Active Problem Morbid obesity E66.01 Active Assessment Synovitis of left knee M65.9 Active Assessment Tear of medial meniscus of left S83.242A Active knee, current, unspecified tear type, initial encounter Assessment Pain, joint, knee, left M25.562 Active Problem Urinary tract infection, site not N39.0 Active specified Problem Hematuria, unspecified R31.9 Active Problem Abnormal menses N92.6 Active Problem Uncontrolled type 2 diabetes E11.65 Active mellitus without complication, without long-term current use of insulin Problem Hypertension, unspecified type I10 Active Problem Acute pain of left knee M25.562 Active Problem Swelling of left knee joint M25.462 Active Medications Medication Code Code Instructions Start End Status Dosage System Date [facility] [id number] 50 MG Orally July 04, Active 1 tablet Once a day 2018 Blood Glucose Monitor NDC 0 as directed July 04, Active As Test BS once 2018 directed daily (DISPENSE BLOOD GLUCOSE MONITOR FORMULARY TO INSURANCE) Amlodipine Besylate ND 74416615956 5 MG Orally Active 1 tablet Once daily Sprintec 28 ND [id number] 0.25-35 MG-MCG Active 1 tablet Orally Once a day Lancets ND 72726583142 - subcutaneous July 04, Active as Test BS once 2018 directed daily (dispense lancets formul[facility] ) Blood Glucose Test NDC 0 as directed July 04, Active As Strip Test BS once 2018 directed daily (DISPENSE TESTING STRIPS FORMULARY TO INSURANCE) Hydrochlorothiazide ND 01131752578 12.5 MG Orally Active 1 tablet Once daily in the morning Results Name Result Date Reference Range Unit Abnormality Flag MRI KNEE WO CONTRAST Summary Purpose [employer] Submission
--- OUTSIDE RECORDS SUMMARY | 2018-05-18 08:23 | XMS REPORT ---
:1985 Author Organization [employer] Care Team Providers Name Role Phone Vadim Vaca Provider Role Unavailable Allergies No Known Allergies [...]
--- OUTSIDE RECORDS SUMMARY | 2018-05-18 08:23 | XMS REPORT ---
:1985 Author Organization eClinicalWorks Care Team Providers Name Role Phone Sergomartin Gloria Provider Role Unavailable Allergies No Known Allergies Problems Problem Type Condition Code Onset Dates Condition Status Problem Diabetes E11.9 Active Problem Morbid obesity E66.01 Active Assessment Uncontrolled type 2 diabetes E11.65 Active mellitus without complication, without long-term current use of insulin Assessment Hypertension, unspecified type I10 Active Problem Urinary tract infection, site not [...] Start End Status Dosage System Date Date Amlodipine Besylate [facility] 73845653432 5 MG Orally Active 1 tablet Once daily Januvia ND 00603436453 50 MG Orally July 04, Active 1 tablet Once a day 2017 Hydrochlorothiazide [facility] 91102687970 12.5 MG Orally Active 1 tablet Once daily in the morning Results No Known Results Summary Purpose eClinicalWorks Submission
--- OUTSIDE RECORDS SUMMARY | 2018-05-18 08:23 | XMS REPORT ---
:1985 Author Organization eClinicalWorks Care Team Providers Name Role Phone Vadim Vaca Provider Role Unavailable Allergies, Adverse Reactions, Alerts Substance Reaction Event Type Royal Inhibitor swelling of lips Drug Allergy Problems Problem Type Condition Code Onset Dates Condition Status Problem Diabetes E11.9 Active Problem Morbid obesity E66.01 Active Assessment Knee effusion, left M25.462 Active Assessment Synovitis of left knee M65.9 Active Assessment Pain, joint, knee, left M25.562 Active [...] Start End Status Dosage System Date Date [facility] 49984219462 50 MG Orally July 04, Active 1 tablet Once a day 2017 Hydrochlorothiazide ND 24016363993 12.5 MG Orally Active 1 tablet Once daily in the morning Blood Glucose Monitor NDC 0 as directed July 04, Active As Test BS once 2017 directed daily (DISPENSE BLOOD GLUCOSE MONITOR FORMULARY TO INSURANCE) Sprintec 28 ND 32613010168 0.25-35 MG-MCG Active 1 tablet Orally Once a day Lancets [facility] 38712171615 - subcutaneous July 04, Active as Test BS once 2018 directed daily ([facility] Amlodipine Besylate ND 16330616555 5 MG Orally Active 1 tablet Once daily Blood Glucose Test NDC 0 as directed July 04, Active As Strip Test BS once 2018 directed daily (DISPENSE TESTING STRIPS FORMULARY TO INSURANCE) Results No Known Results Summary Purpose eClinicalWorks Submission
[2018-05-18 09:34] LABS: Urine Blood 3+ (NEG); Urine Glucose NEGATIVE (NEG); Urine Protein 1+ (NEG); Urine pH 6.5 (5.0-7.0)
[2018-05-18 09:37] LABS: Absolute Lymphocytes (CBC) 1.7 K/uL (0.7-4.9); Absolute Monocytes 0.3 K/uL (0.1-1.3); Absolute Neutrophil 3.9 K/uL (1.8-8.0); Basophils % 0.7 % (0-1.3); Eosinophils % 2.9 % (0-4.4); Hematocrit 35.6 % (36.0-45.0); Lymphocytes % 27.5 % (15.3-44.8); MPV 8.1 fL (7.6-11.3); Monocytes % 5.6 % (3.3-12.3); RBC Red Blood Cell Count 4.92 M/uL (3.86-4.86)
[2018-05-18] MEDS ORDERED: ONDANSETRON 4 MG/2 ML VIAL ONE (09:39)
[2018-05-18] MEDS ORDERED: NA CHLORIDE 0.9% 500 ML ONE (09:39)
[2018-05-18 09:49] LABS: ALT/SGPT 25 U/L (12-78); AST/SGOT 15 U/L (15-37); Albumin 3.5 g/dL (3.4-5.0); Alkaline Phosphatase 76 U/L (45-117); BUN Blood Urea Nitrogen 10 mg/dL (7-18); Bicarbonate 29 mmol/L (21-32); Bilirubin Direct < 0.1 mg/dL (0-0.2); Bilirubin Total 0.2 mg/dL (0.2-1.0); Glucose Level 99 mg/dL (74-106); Lipase 86 U/L (73-393); Potassium 3.5 mmol/L (3.5-5.1); Protein, Total 7.9 g/dL (6.4-8.2); Sodium Level 143 mmol/L (136-145); Urine Bacteria >50 /HPF (<20); Urine Culture Reflex Order REFLEXED; Urine Mucus 1+ /HPF (NONE SEEN); Urine RBC 20-50 /HPF (NONE SEEN)
[2018-05-18] MEDS ORDERED: NITROFURAN MACRO 100 MG CAP PO ONE (10:29)
[2018-05-18] MEDS ORDERED: HYDROCODONE/APAP 10/325 TAB ONE (10:52)
--- NOTE | 2018-05-18 11:33 | RAD REPORT ---
EXAM DESCRIPTION: CTAbdomen Pelvis W Contrast - 05/18/2018 11:21 am CLINICAL HISTORY: Abdominal pain. ABD PAIN COMPARISON: Abdomen Pelvis W Contrast dated 10/01/2017 TECHNIQUE: Biphasic CT imaging of the abdomen and pelvis was performed with 100 ml non-ionic IV cont rast. All CT scans are performed using dose optimization technique as appropriate and may include automated exposure control or mA/KV adjustment according to patient size. FINDINGS: The lung bases are clear.Small hiatal hernia. Mild fatty liver. The spleen, pancreas, adrenal glands and kidneys are within normal limits. No bowel obstruction, free air, free fluid or abscess. The appendix is normal. No evidence of signi ficant lymphadenopathy. No suspicious bony findings. Soft tissue mass is present in the cervix. IMPRESSION: No acute intra-abdominal or pelvic finding. Soft tissue mass is present in the cervix which could indicate fibroid, mass or polyp. Consider follo wup direct visualization.
--- NOTE | 2018-05-18 12:07 | RAD REPORT ---
EXAM DESCRIPTION: US - Pelvis Complete - 05/18/2018 11:55 am CLINICAL HISTORY: rule out ovarian torsion;Abd pain Pelvic pain. COMPARISON: Transvaginal Study Probe dated 06/03/2017 FINDINGS: The uterus is normal in size, shape and echotexture. The uterus measures 11.7 x 6.2 x 4.7 cm. The endometrial stripe measures 9 mm, normal. Echogenic mass is present in the cervical canal 4.3 x 2 .5 x 2.5 cm Both ovaries are normal in size, shape and echotexture. The right ovary measures 3.4 x 2.6 x 2.1 cm. The left ovary measures 4.1 x 2.9 x 2.8 cm. No ovarian or parovarian lesions. No adnexal masses. Normal Doppler blood flow was demonstrated to both ovaries. No significant pelvic ascites. IMPRESSION: Echogenic circumscribed mass in the cervical canal is present (4.3 x 2.5 cm).Differentia l considerations include polyp, fibroid and carcinoma. Advise direct visualization with hysteroscopy.
--- NOTE | 2018-05-18 12:23 | EDPHYS ---
Physician Documentation [facility] Name: Elsy Lux Age: 33 yrs Sex: Female : 1985 Arrival Date: 05/18/2018 Time: 08:23 Bed 20 Private MD: Gloria López ED Physician Bryon Crowder HPI: 05/18 08:47 This 33 yrs old Black Female presents to ER via Ambulatory with complaints of Abdominal rn Pain. 08:47 The patient presents with abdominal pain in the lower abdomen, in the periumbilical rn area. Onset: The symptoms/episode began/occurred this morning. The symptoms do not radiate. Associated signs and symptoms: Pertinent negatives: nausea and vomiting, anorexia, blood in stools, constipation, diarrhea, dysuria, fever, hematuria, shortness of breath, vaginal discharge. Modifying factors: The symptoms are alleviated by remaining still, the symptoms are aggravated by movement, touching the area. Severity of pain: At its worst the pain was moderate in the emergency department the pain is unchanged. The patient has experienced a previous episode. Reports abd pain, began this morning, fine last night, no fever, no vomiting/diarrhea/vaginal discharge. Reports has had similar pain in past and was gynecological in origin, needed surgery, but can't tell me what it was. Constant pain, worse with movement and car ride here. . 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 - Social history:: Smoking status: unknown. - Ebola Screening: : Patient negative for fever greater than or equal to 101.5 degrees Fahrenheit, and additional compatible Ebola Virus Disease symptoms Patient denies exposure to infectious person Patient denies travel to an Ebola-affected area in the 21 days before illness onset No symptoms or risks identified at this time. - Family history:: not pertinent. - Hospitalizations: : No recent hospitalization is reported. ROS: 08:47 Constitutional: Negative for fever, chills, and weight loss, Eyes: Negative for injury, rn pain, redness, and discharge, Neck: Negative for injury, pain, and swelling, Cardiovascular: Negative for chest pain, palpitations, and edema, Respiratory: Negative for shortness of breath, cough, wheezing, and pleuritic chest pain, Abdomen/GI: + abdominal pain, negative for nausea/vomiting/diarrhea Back: Negative for injury and pain, : Negative for injury, bleeding, discharge, and swelling, MS/Extremity: Negative for injury and deformity, Skin: Negative for injury, rash, and discoloration, Neuro: Negative for headache, weakness, numbness, tingling, and seizure. Exam: 08:47 Constitutional: This is a well developed, well nourished patient who is awake, alert, rn laying on her right side, appears uncomfortable Head/Face: Normocephalic, atraumatic. Eyes: Pupils equal round and reactive to light, extra-ocular motions intact. Lids and lashes normal. Conjunctiva and sclera are non-icteric and not injected. Cornea within normal limits. Periorbital areas with no swelling, redness, or edema. ENT: MMM Abdomen/GI: soft, + tender RLQ/periumbilical/suprapubic/LLQ, no rebound, no masses Skin: Warm, dry MS/ Extremity: Pulses equal, no cyanosis. Neurovascular intact. Full, normal range of motion. Equal circumference. Neuro: Awake and alert, GCS 15, oriented to person, place, time, and situation. Cranial nerves II-XII grossly intact. Motor strength 5/5 in all extremities. Sensory grossly intact. Cerebellar exam normal. Normal gait. Vital Signs: 08:46 BP 156 / 101; Pulse 83; Resp 16; Temp 98.5; Pulse Ox 100% ; Weight 104.33 kg; Height 5 bp ft. 6 in. (167.64 cm); 10:45 BP 143 / 73; Pulse 93; Resp 14; Pulse Ox 100% ; bp 12:36 BP 147 / 88; Pulse 92; Resp 16; Pulse Ox 99% ; bp 08:46 Body Mass Index 37.12 (104.33 kg, 167.64 cm) bp MDM: 08:26 Patient medically screened. rn 12:19 Differential diagnosis: appendicitis, cholecystitis, Cholelithiasis, Ectopic , rn Endometriosis, gastritis, gastroesophageal reflux disease, non-specific abd pain, Ovarian Torsion, pancreatitis, Peritonitis, Ureterolithiasis, urinary tract infection. Data reviewed: vital signs, nurses notes, lab test result(s), radiologic studies, CT scan, ultrasound, and as a result, I will discharge patient. Counseling: I had a detailed discussion with the patient and/or guardian regarding: the historical points, exam findings, and any diagnostic results supporting the discharge/admit diagnosis, lab results, radiology results, the need for outpatient follow up, to return to the emergency department if symptoms worsen or persist or if there are any questions or concerns that arise at home. Response to treatment: the patient's symptoms have mildly improved after treatment, and as a result, I will discharge patient. Special discussion: I discussed with the patient/guardian in detail that at this point there is no indication for admission to the hospital. It is understood, however, that if the symptoms persist or worsen the patient needs to return immediately for re-evaluation. I discussed with the patient the need to follow-up with the PCP/specialist for the noted incidental finding on X-ray/CT scanning. Based on the history and exam findings, there is no indication for further emergent testing or inpatient evaluation. I discussed with the patient/guardian the need to see the OB Gyne specialist for further evaluation of the symptoms. ED course: Spoke with patient regarding cervical mass, she states she will call Dr. Davis today upon discharge to be evaluated, pain improved, + UTI, negative ct abd and normal blood flow to ovaries. Will dc home. . 05/18 08:46 Order name: Basic Metabolic Panel; Complete Time: : rn 05/18 08:46 Order name: CBC with Diff; Complete Time: :05/18 08:46 Order name: Hepatic Function; Complete Time: : rn 05/18 08:46 Order name: Lipase; Complete Time: : rn 05/18 08:46 Order name: Urine Microscopic Only; Complete Time: :05/18 09:28 Order name: Urine Dipstick--Ancillary (enter results); Complete Time: 09:51 eb 05/18 08:46 Order name: IV Saline Lock; Complete Time: 09:31 rn 05/18 08:46 Order name: US Pelvis Complete; Complete Time: 12:13 rn 05/18 08:46 Order name: CT Abd/Pelvis - W/Contrast; Complete Time: 12:13 rn 05/18 09:28 Order name: Urine --Ancillary (enter results); Complete Time: 09:51 eb 05/18 09:51 Order name: Urine Culture [facility] 05/18 08:46 Order name: Labs collected and sent; Complete Time: 09:31 rn 05/18 08:46 Order name: Urine Test (obtain specimen); Complete Time: 09:31 rn 05/18 08:46 Order name: Urine Dipstick-Ancillary (obtain specimen); Complete Time: 09:31 rn Administered Medications: 09:15 Drug: NS 0.9% 500 ml Route: IV; Rate: bolus; Site: right antecubital; bp 10:15 Follow up: IV Status: Completed infusion; IV Intake: 500ml bp 10:10 Drug: Nitrofurantoin 100 mg Route: PO; bp 10:22 Follow up: Response: No adverse reaction bp 10:40 Drug: [place] 10 mg-325 mg 1 tabs Route: PO; bp 10:58 Follow up: Response: Pain is decreased bp Disposition: 05/18/18 12:22 Discharged to Home. Impression: Urinary tract infection, site not specified, Cervical Mass. - Condition is Stable. - Discharge Instructions: Urinary Tract Infection, Adult, Hysteroscopy. - Prescriptions for Tylenol- Codeine #3 300-30 mg Oral Tablet - take 1 tablet by ORAL route every 6 hours As needed; 15 tablet. Macrobid 100 mg Oral Capsule - take 1 capsule by ORAL route every 12 hours for 7 days; 14 capsule. - Medication Reconciliation Form, Thank You Letter, Antibiotic Education, Prescription Opioid Use form. - Follow up: Darcie Davis MD; When: Upon discharge from the Emergency Department; Reason: Recheck today's complaints, Re-evaluation by your physician. - Problem is new. - Symptoms have improved. Signatures: Dispatcher [employer] [facility] Bryon Crowder MD MD rn Peltier, Brian, RN RN bp Corrections: (The following items were deleted from the chart) 12:38 12:22 05/18/2018 12:22 Discharged to Home. Impression: Urinary tract infection, site bp not specified; Cervical Mass. Condition is Stable. Forms are Medication Reconciliation Form, Thank You Letter, Antibiotic Education, Prescription Opioid Use. Follow up: Darcie Davis; When: Upon discharge from the Emergency Department; Reason: Recheck today's complaints, Re-evaluation by your physician. Problem is new. Symptoms have improved. rn
--- NOTE | 2018-05-18 12:23 | ER ---
Nurse's Notes [facility] Name: Elsy Lux Age: 33 yrs Sex: Female : 1985 Arrival Date: 05/18/2018 Time: 08:23 Bed 20 Private MD: Gloria López Diagnosis: Urinary tract infection, site not specified;Cervical Mass Presentation: 05/18 08:25 Presenting complaint: Patient states: DIFFUSE ABD PAIN. Transition of care: patient was bp not received from another setting of care. Onset of symptoms was May 18, 2018. Risk Assessment: Do you want to hurt yourself or someone else? Patient reports no desire to harm self or others. Initial Sepsis Screen: Does the patient meet any 2 criteria? No. Patient's initial sepsis screen is negative. Does the patient have a suspected source of infection? No. Patient's initial sepsis screen is negative. Care prior to arrival: None. 08:25 Method Of Arrival: Ambulatory bp 08:25 Acuity: SOBIA 3 bp Triage Assessment: 08:30 General: Appears in no apparent distress. comfortable, obese, Behavior is cooperative, bp appropriate for age, anxious. 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 - Social history:: Smoking status: unknown. - Ebola Screening: : Patient negative for fever greater than or equal to 101.5 degrees Fahrenheit, and additional compatible Ebola Virus Disease symptoms Patient denies exposure to infectious person Patient denies travel to an Ebola-affected area in the 21 days before illness onset No symptoms or risks identified at this time. - Family history:: not pertinent. - Hospitalizations: : No recent hospitalization is reported. Screenin:00 Abuse screen: Denies threats or abuse. Denies injuries from another. Nutritional bp screening: No deficits noted. Tuberculosis screening: No symptoms or risk factors identified. Fall Risk None identified. Assessment: 08:51 General: SEE TRIAGE NOTE. bp 09:20 Reassessment: PT FINISHED PO CONTRAST, CT NOTIFIED. bp 10:45 Reassessment: PT TO CT WITH MEMS DEVICE SCIENTIST. bp 12:36 Reassessment: PT D/C HOME AMBULATORY WITH FAMILY, DX WITH UTI AND CERVICAL MASS. Pain: bp Denies pain. GI: Bowel sounds present X 4 quads. Abd is soft X 4 quads. Vital Signs: 08:46 BP 156 / 101; Pulse 83; Resp 16; Temp 98.5; Pulse Ox 100% ; Weight 104.33 kg; Height 5 bp ft. 6 in. (167.64 cm); 10:45 BP 143 / 73; Pulse 93; Resp 14; Pulse Ox 100% ; bp 12:36 BP 147 / 88; Pulse 92; Resp 16; Pulse Ox 99% ; bp 08:46 Body Mass Index 37.12 (104.33 kg, 167.64 cm) bp ED Course: 08:23 Patient arrived in ED. mr 08:23 Gloria López MD is Private Physician. mr 08:25 Dion Duran, VARGHESE is Primary Nurse. bp 08:26 Bryon Crowder MD is Attending Physician. rn 08:40 Triage completed. bp 08:46 Arm band placed on. bp 09:00 Patient has correct armband on for positive identification. Bed in low position. Call bp light in reach. Side rails up X2. 09:20 Inserted saline lock: 20 gauge in right antecubital area, using aseptic technique. bp Blood collected. 09:33 Urine collected: clean catch specimen, cloudy, kade colored. jb1 11:21 CT Abd/Pelvis - W/Contrast In Process Unspecified. EDMS 11:56 US Pelvis Complete In Process Unspecified. EDMS 12:22 Darcie Davis MD is Referral Physician. rn 12:37 No provider procedures requiring assistance completed. IV discontinued, intact, bp bleeding controlled, No redness/swelling at site. Pressure dressing applied. Administered Medications: 09:15 Drug: NS 0.9% 500 ml Route: IV; Rate: bolus; Site: right antecubital; bp 10:15 Follow up: IV Status: Completed infusion; IV Intake: 500ml bp 10:10 Drug: Nitrofurantoin 100 mg Route: PO; bp 10:22 Follow up: Response: No adverse reaction bp 10:40 Drug: [place] 10 mg-325 mg 1 tabs Route: PO; bp 10:58 Follow up: Response: Pain is decreased bp Intake: 10:15 IV: 500ml; Total: 500ml. bp Outcome: 12:22 Discharge ordered by . rn 12:37 Discharged to home ambulatory, with family. bp 12:37 Condition: stable 12:37 Discharge instructions given to patient, Instructed on discharge instructions, follow up and referral plans. medication usage, Demonstrated understanding of instructions, follow-up care, medications, Prescriptions given X 2. 12:38 Patient left the ED. bp Addendum: 05/21/2018 08:34 Addendum: Culture Results: Positive urine culture. No further action required. Bacteria h b sensitive to prescribed antibiotic. Signatures: Dispatcher [employer] EDMS Luis Alberto Lorenzana Domitila Ronquillo mr Crowder, MD MD varghese Slater Heather, RN RN hb Peltier, Brian, RN RN bp Corrections: (The following items were deleted from the chart) 05/18 10:22 08:46 BP 156 / 101; Pulse 83bpm; Resp 16bpm; Temp 98.5F; bp bp
[2018-05-18 12:48] VITALS: TEMP 98.5
[2018-05-18 12:51] VITALS: BP 147/88; O2SAT 99
== END 2018-05-18 12:38 | disposition home or self-care (01) ==
LOC: ER 08:20
DX: N39.0 Urinary tract infection, site not specified (principal); N88.9 Noninflammatory disorder of cervix uteri, unspecified; I10 Essential (primary) hypertension; E11.9 Type 2 diabetes mellitus without complications; Z88.8 Allergy status to other drugs, medicaments and biological substances
CPT/HCPCS: 36415; 74177; 76856; 80048; 80076; 81003; 81015; 81025; 83690; 85025; 87077; 87086; 87088; 87186; 96360; 99284; J2405; Q9967

== ENCOUNTER 2018-06-15 09:03 | Day surgery (SDC) | payer OTHER ==
[2018-06-13 13:51] LABS: Absolute Lymphocytes (CBC) 2.3 K/uL (0.7-4.9); Absolute Monocytes 0.4 K/uL (0.1-1.3); Basophils % 0.5 % (0-1.3); Eosinophils % 1.4 % (0-4.4); Hematocrit 33.8 % (36.0-45.0); Lymphocytes % 26.3 % (15.3-44.8); MPV 8.2 fL (7.6-11.3); Monocytes % 4.8 % (3.3-12.3); RBC Red Blood Cell Count 4.67 M/uL (3.86-4.86)
[2018-06-13 13:59] LABS: Potassium 3.3 mmol/L (3.5-5.1)
[2018-06-15] MEDS ORDERED: NA CHLORIDE 0.9% 1,000 ML ONE ×3 (09:25→12:30)
--- OUTSIDE RECORDS SUMMARY | 2018-06-15 09:37 | XMS REPORT ---
[...] Start End Status Dosage System Date Date [facility] 63778761267 50 MG Orally July 04, Active 1 tablet Once a day 2017 Hydrochlorothiazide ND 05948574504 12.5 MG Orally Active 1 tablet Once daily in the morning Blood Glucose Monitor NDC 0 as directed July 04, Active As Test BS once 2017 directed daily (DISPENSE BLOOD GLUCOSE MONITOR FORMULARY TO INSURANCE) Sprintec 28 ND 94776480559 0.25-35 MG-MCG Active 1 tablet Orally Once a day Lancets [facility] 90208502226 - subcutaneous July 04, Active as Test BS once 2018 directed daily ([facility] Amlodipine Besylate ND 10014460327 5 MG Orally Active 1 tablet Once daily Blood Glucose Test NDC 0 as directed July 04, Active As Strip Test BS once 2018 directed daily (DISPENSE TESTING STRIPS FORMULARY TO INSURANCE) Results No Known Results Summary Purpose eClinicalWorks Submission
--- OUTSIDE RECORDS SUMMARY | 2018-06-15 09:37 | XMS REPORT ---
[...] Instructions Start End Status Dosage System Date [facility] 31324793637 50 MG Orally July 04, Active 1 tablet Once a day 2018 Blood Glucose Monitor NDC 0 as directed July 04, Active As Test BS once 2018 directed daily (DISPENSE BLOOD GLUCOSE MONITOR FORMULARY TO INSURANCE) Amlodipine Besylate ND 57808517207 5 MG Orally Active 1 tablet Once daily Sprintec 28 ND 10749036915 0.25-35 MG-MCG Active 1 tablet Orally Once a day Lancets ND 43903721537 - subcutaneous July 04, Active as Test BS once 2018 directed daily ([facility] Blood Glucose Test NDC 0 as directed July 04, Active As Strip Test BS once 2018 directed daily (DISPENSE TESTING STRIPS FORMULARY TO INSURANCE) Hydrochlorothiazide ND 42499407356 12.5 MG Orally Active 1 tablet Once daily in the morning Results Name Result Date Reference Range Unit Abnormality Flag MRI KNEE WO CONTRAST Summary Purpose eClinicalWorks Submission
--- OUTSIDE RECORDS SUMMARY | 2018-06-15 09:37 | XMS REPORT ---
[...] End Status Dosage System Date Date Lancets [facility] 64460782218 - subcutaneous July 04, Active as Test BS once 2018 directed daily (dispense lancets formulary to [facility] ) Blood Glucose Test ND 0 as directed July 04, Active As Strip Test BS once 2018 directed daily (DISPENSE TESTING STRIPS FORMULARY TO INSURANCE) Flagyl [facility] 79881455620 500 MG Orally Active 2 tablets for 10 days PredniSONE ND 53906450408 20 MG Orally Active 1 tablet Once a day Sprintec [address] [facility] 53471453636 0.25-35 MG-MCG Active 1 tablet Orally Once a day Metformin HCl [facility] 19035745038 500 MG Orally Active 1 tablet Once daily with a meal Hydrochlorothiazide [facility] 16800162528 12.5 MG Orally Active 1 tablet Once daily in the morning Amlodipine Besylate [facility] 08455296977 5 MG Orally Active 1 tablet Once daily Fluconazole [facility] 71264583282 150 MG Orally Active 1 tablet Once a week Blood Glucose Monitor NDC 0 as directed July 04, Active As Test BS once 2017 directed daily (DISPENSE BLOOD GLUCOSE MONITOR FORMULARY TO INSURANCE) Alyssa [facility] 68804918982 50 MG Orally July 04, Active 1 tablet Once a day 2017 Results No Known Results Summary Purpose eClinicalWorks Submission
--- OUTSIDE RECORDS SUMMARY | 2018-06-15 09:38 | XMS REPORT ---
[...] Status Dosage System Date Date Amlodipine Besylate [facility] 08634858015 5 MG Orally Active 1 tablet Once daily Januvia ND 79265603581 50 MG Orally July 04, Active 1 tablet Once a day 2017 Hydrochlorothiazide [facility] 42109249794 12.5 MG Orally Active 1 tablet Once daily in the morning Results No Known Results Summary Purpose eClinicalWorks Submission
[2018-06-15 09:41] LABS: Specific Gravity 1.025 (1.005-1.030)
[2018-06-15] MEDS ORDERED: LIDOCAINE 1% W/EPI 1:100,000 MDV 50 ML VIAL ONE (10:37)
[2018-06-15] MEDS ORDERED: FENTANYL CITR 100 MCG/2 ML ONE (10:39)
[2018-06-15] MEDS ORDERED: PROPOFOL 200 MG/20 ML VIAL IV ONE (10:39)
[2018-06-15] MEDS ORDERED: MIDAZOLAM HCL 2 MG/2 ML INJ ONE (10:40)
[2018-06-15] MEDS ORDERED: LIDOCAINE 2% MPF 5 ML VIAL ONE (10:40)
[2018-06-15] MEDS ORDERED: ONDANSETRON 4 MG/2 ML VIAL ONE (11:18)
[2018-06-15] MEDS: HYDROMORPHONE HCL 1 MG/ML INJ ONE ×4 (11:54→12:20)
[2018-06-15 12:30] VITALS: TEMP 98.4
[2018-06-15 13:57] VITALS: BP 157/77; O2SAT 95
--- NOTE | 2018-06-15 21:31 | OP ---
Date of Procedure: 06/15/2018 Surgeon: Darcie Davis MD Preoperative Diagnoses: Menorrhagia, pelvic pain, possible cervical mass. Postoperative Diagnoses: Menorrhagia, pelvic pain, endometrial polypoid tumors, and cervical dilatio n filled with the same tissue. No definitive circumscribed mass seen, not consistent with fibroids. Procedures Performed: Hysteroscopy, polypectomy, dilation and curettage. Anesthesia: General with LMA. Specimens: Endometrial curettings and polyp. Complications: No complications. Drains: No drains. Condition: Stable. Indications: The patient is a 33-year-old with heavy menstrual bleeding. The patient is overweight. She presented more than a year ago with bleeding, and she underwent hysteroscopy, D and C. There w as polypoid endometrium, very mild benign polyp was seen and no atypia or malignancy were diagnosed l ast year, so she was started on oral contraceptives. The patient had desired to preserve her fertili ty. She was overweight and continued to be so, and her bleeding has lessened. Recently, she went to the ER with a complaint of pelvic pain for which she was evaluated with a CT scan of the abdomen and pelvis. Possible cervical mass was suspected and transvaginal ultrasound was done and confirmed. I mages were reviewed. This appeared to be some endometrial tissue or tissue consistent with endometri um, so plan was made to first perform hysteroscopy, D and C, counseled about possible fibroid, polyps , or tumor. The patient was consented for the procedure, brought to the hospital. Procedure In Detail: After she was re-consented. She was taken back to OR, placed in the supine fas hion on the operating table. After the general anesthesia was given with LMA, she was placed in a do rsal lithotomy position using Brendan stirrups. SlimLine diagnostic hysteroscope with a 30-degree lens and normal saline were introduced into the cervical canal, traversed under direct visualization into the uterine cavity, all the way in the proximal cervical canal and in the entire endometrium. There appeared to be lots of polypoid frondlike endometrial tissue. Both tubal ostia were visualized. Th e fundus sounded to 11 cm with the hysteroscope. This was clearly a concerning type of tissue, so sc ope was removed gently. With the help of polyp forceps, the tissue was retrieved. There was a lot o f tissue that was retrieved, polyps as well. She had a small amount of bleeding. There was good hem ostasis after removing everything. Sampling was performed adequately, sent for permanent pathology. All the instruments were removed. Instrument, needle, and sponge counts were done and were correct at the end of the case. The patient will be seeing me back in 1 week for discussion of results. ALVINA Voice ID: [id number] Report ID: [id number]
== END 2018-06-15 14:27 | disposition home or self-care (01) ==
LOC: OR 09:03
PROVIDERS: ATTEND Obstetrics & Gynecology
PROC: 0UDB7ZX Extraction of Endometrium, Via Natural or Artificial Opening, Diagnostic (ICD-10-PCS; 2018-06-15)
PROC: 0UJD8ZZ Inspection of Uterus and Cervix, Via Natural or Artificial Opening Endoscopic (ICD-10-PCS; 2018-06-15)
PROC: 0UB97ZX Excision of Uterus, Via Natural or Artificial Opening, Diagnostic (ICD-10-PCS; principal; 2018-06-15 10:30)
DX: N84.0 Polyp of corpus uteri (principal); N92.1 Excessive and frequent menstruation with irregular cycle; R10.2 Pelvic and perineal pain; D50.0 Iron deficiency anemia secondary to blood loss (chronic); E11.9 Type 2 diabetes mellitus without complications; I10 Essential (primary) hypertension; Z79.84 Long term (current) use of oral hypoglycemic drugs; Z79.899 Other long term (current) drug therapy; E66.3 Overweight; Z68.41 Body mass index [BMI] 40.0-44.9, adult
CPT/HCPCS: 36415; 80048; 81025; 82962; 85025; 88305; J1170; J2250; J2405; J2704; J3010; J7030

== ENCOUNTER → 2020-01-22 | Day surgery (SDC) | payer OTHER ==
[~2020-01-22] MED LIST: FENTANYL CITR 100 MCG/2 ML ONE; HYDROCODONE/APAP 10/325 TAB ONE; KETOROLAC 30 MG/ML INJ ONE; LIDOCAINE 1% W/EPI 1:100,000 10 ML VIAL ONE; LIDOCAINE 2% MPF 5 ML VIAL ONE; MIDAZOLAM HCL 2 MG/2 ML INJ ONE; NA CHLORIDE 0.9% 1,000 ML ONE; NA CIT/CITRIC AC 30 ML ORAL UDC ONE; ONDANSETRON 4 MG/2 ML VIAL ONE; Ringers Lactate 1,000 ML IV ONE; dexAMETHasone 4 MG/ML VIAL ONE; propofoL 200 MG/20 ML VIAL IV ONE
[2020-01-22 08:16] LABS: Specific Gravity 1.025 (1.005-1.030)
--- OUTSIDE RECORDS SUMMARY | 2020-01-22 09:47 | XMS REPORT | Continuity of Care Document ---
:1985 Author Organization [facility] t Address [address] [place] [address] Care Team Providers Name Role Phone Unavailable Unavailable Unavailable Problems This patient has no known problems. Allergies, Adverse Reactions, Alerts Allergy Allergy Status Severity Reaction(s) Onset Inactive Treating Comm ents Source Name Type Date Date Clinician Royal Adverse Active swelling of [facility] Inhib[facility] Reaction lips [facility] Medications Ordered Filled Start Stop Current Ordering Indication Dosage Frequency Signature Comments Components Source Medication Medication Date Date Medication? Clinician (SIG) Name Name Doxazosin Doxazosin Yes Gloria as [facility] Mesylate Mesylate - Millender directed [facility] - [facility]: [facility] Contrave Contrave 2020- No Gloria one daily [facility] Starter Starter 07-11 06-27 Millender times 7 [facility] - pack pack 00:00: 00:00 days, then Memori a 00 :00 bid, then l 2 am and 1 Outpati pm and ent then 2 bid Clinics One Touch One Touch Yes Gloria one strip [facility] Verio Verio 4-27 Millender [facility] - 00[facility]: [facility] Nabumetone Nabumetone 2017-02 Yes Gloria [address] [facility] 1-27 Millender [facility] - 00:[facility]: [facility] Lancets Lancets Yes Gloria as [facility] 5-21 Millender directed [facility] - 00:00: (dispense Memoria 00 lancets l formulary Outpati to ent insuarnace Clinics ) Blood Blood 2018- Yes Gloria As [facility] Glucose Glucose 5-21 Millender directed [facility] - Test Strip Test Strip 00:00: (DISPENSE Memoria 00 TESTING l STRIPS Outpati FORMULARY ent TO Clinics INSURANCE) Blood Blood 2018-0 Yes Gloria As [facility] Glucose Glucose 5-21 Millender directed [facility] - Monitor Monitor 00:00: (DISPENSE Me moria 00 BLOOD l GLUCOSE Outpati MONITOR ent FORMULARY Clinics TO INSURANCE) Sprintec 28 Sprintec 28 Yes Gloria [address] [facility] Millender [facility] Outpat[facility] ent Clinics Hydrochloro Hydrochloro Yes Gloria [address] [facility] thiazide thiazide Millender in the [facility] Amlodipine Amlodipine Yes Gloria [address] [facility] Besylate Besylate Millender [facility] Bystolic Bystolic Yes Gloria [address] Millender [facility] Januvia Januvia Yes Gloria [address] [facility] Millender [facility] Procedures This patient has no known procedures. Encounters Start End Encounter Admission Attending Care Care Encounter Source Date/Time Date/Time Type Type Clinicians Facility Department ID 2020-01-21 2020-01-21 [facility] [id number] 2019-10-02 2019-10-02 [facility] [id number] [facility] 15:04:00 15:04:00 [facility] l Medicine Outpati ent Clinics 2019-07-15 2019-07-15 [facility] [id number] [facility] 16:10:00 16:10:00 [facility] Medicine l Medicine Outpati ent Clinics 2019-07-12 2019-07-12 [facility] [id number] [facility] 14:40:00 14:40:00 [facility] Medicine l Medicine Outpati ent Clinics 2019-06-11 2019-06-11 [facility] [id number] [address] 08:15:00 08:15:00 [place] [facility] Medicine Outpati ent Clinics 2019-05-14 2019-05-14 [facility] [id number] 09:39:00 09:39:00 t [facility] Medicine Outpati ent Clinics 2019-04-17 2019-04-17 [facility] [id number] 00:46:00 00:46:00 t [facility] l Medicine Outpati ent Clinics 2019-04-12 2019-04-12 [facility] [id number] 15:00:00 15:00:00 t [facility] Medicine Outpati ent Clinics 2019-02-27 2019-02-27 [facility] [id number] [facility] 14:28:00 14:28:00 t [facility] Medicine Outpati ent Clinics 2018-10-19 2018-10-19 [facility] [id number] [address] 13:20:00 13:20:00 t [facility] Medicine Outpati ent Clinics 2018-10-14 2018-10-14 [facility] [id number] [address] 12:43:00 12:43:00 t [facility] Medicine Outpati ent Clinics 2018-09-26 2018-09-26 [facility] [id number] [facility] 15:00:00 15:00:00 t [facility] Medicine Outpati ent Clinics 2018-06-15 2018-06-15 [facility] [id number] 16:21:00 16:21:00 t [facility] Medicine Outpati ent Clinics 2018-06-14 2018-06-14 [facility] [id number] [address] 10:20:00 10:20:00 [facility] Medicine Outpati ent Clinics 2017-11-28 2017-11-28 [facility] [id number] [facility] 14:26:00 14:26:00 t [facility] ent [facility] 2017-11-15 2017-11-15 [facility] [id number] [address] 08:25:00 08:25:00 [facility] 2017-11-10 2017-11-10 [facility] [id number] [facility] [address] 21[facility]25:00 21:25:00 [facility] 2017-11-10 2017-11-10 [facility] [id number] 09:00:00 09:00:00 [facility] 2017-11-08 2017-11-08 [facility] [id number] 14:31:00 14:31:00 [facility] 2017-11-02 2017-11-02 [facility] [id number] 09:40:00 09:40:00 [facility] 2017-11-01 2017-11-01 [facility] [id number] 09:00:00 09:00:00 [facility] ent Clinics 2017-10-06 2017-10-06 [facility] [id number] 22:54:00 22:54:00 t [facility] ent [facility] 2017-10-06 2017-10-06 [facility] [id number] 13:00:00 13:00:00 [facility] Results This patient has no known results.
--- OUTSIDE RECORDS SUMMARY | 2020-01-22 09:47 | XMS REPORT ---
:1985 Author Organization [facility] Address [address] [place], [place] [address] [place] [address] Care Team Providers Name Role Phone Solomon Unavailable [phone] PROBLEMS Type Condition ICD9-CM [id number] Onset Condition SNOMED Code Notes Code Code Dates Status Problem Morbid obesity E66.01 Active 498812233 Problem Thrombocytosis D47.3 Active 5305185 Problem Mixed E78.2 Active 436484594 hyperlipidemia Problem Hypertension, I10 Active 68234520 unspecified type Problem Uncontrolled type E11.65 Active 433757222 2 diabetes mellitus without complication, without long-term current use of insulin Problem Cervical mass N88.8 Active 068390066 As seen on pelvic u/s and CT scan of abdomen/pe lvis with contrast during ER visit at [facility] on 05/18/18. Problem Iron deficiency D50.9 Active 54815371 anemia, unspecified iron deficiency anemia type ALLERGIES Allergen (clinical Drug/Non Drug Reaction Allergy Type Onset Date S tatus drug ingredient) Allergy documented on EMR Royal Inhibitor swelling of lips Drug Allergy Act lolly ENCOUNTERS from 1984 to 2020-01-21 Encounter Location Date Provider Diagnosis [facility] [place] [address] [place], Latia Solomon Hypertens ion, [address], unspecifie d type I10 ; [place] [address] Uncontrolled t ype 2 diabetes mellit us without complic ation, without long-te rm current use of insulin E11.65 ; Morbid obesity E66.01 ; Cervic al mass N88.8 ; Iron de ficiency anemia, unspeci fied iron deficiency anemia type D50.9 ; Mi xed hyperlipidemia E78.2 and Thrombocyto sis D47.3 IMMUNIZATIONS Vaccine Route Administration Date Status Betamethasone Sodium Phosphate Unknown Nov 10, 2017 A dministered LIDOCAINE HCL 10MG/ML Unknown Nov 10, 2017 Administer ed SOCIAL HISTORY Tobacco Use: Social History Observation Description Date Details (start date - stop date) Never Smoker Sex Assigned At : Social History Observation Description Sex Assigned At Unknown Alcohol Screen Question Answer Notes Did you have a drink containing alcohol in the past year? No Points 0 Interpretation Negative Tobacco Use/Smoking Question Answer Notes Are you a never smoker REASON FOR REFERRAL No Information VITAL SIGNS No information MEDICATIONS Medication SIG (Take, Route, Notes Start Date End Date Status Frequency, Duration) One Touch Verio n/s one strip finger May, Active prick once a day for 90 days Hydrochlorothiazide 25 MG 1 tablet in the Active morning Orally Once daily for 90 days Sprintec 28 0.25-35 MG-MCG 1 tablet Orally Once Not-Taking a day Lancets - as directed June, Active (dispense lancets formulary to [facility]) subcutaneous Test BS once daily Bystolic 10 MG 1 tablet Orally Once Active a day for 90 days Blood Glucose Test Strip As directed June, Active (DISPENSE TESTING STRIPS FORMULARY TO INSURANCE) as directed Test BS once daily for 90 days Nabumetone 750 MG 1 tablet Orally Dec, Not-Taking Twice a day for 30 Day(s) Blood Glucose Monitor As directed June, Active (DISPENSE BLOOD GLUCOSE MONITOR FORMULARY TO INSURANCE) as directed Test BS once daily for 365 days Amlodipine Besylate 10 MG 1 tablet Orally Once Active daily for 90 days Doxazosin Mesylate 1 MG as directed Orally 1 June, Active tablet once daily prn as directed Januvia 50 MG 1 tablet Orally Once A ctive a day for 90 days PROCEDURES No Information RESULTS No Results REASON FOR VISIT re-est. care dr. López MEDICAL (GENERAL) HISTORY Type Description Date Medical History Hypertension, unspecified type Medical History Uncontrolled type 2 diabetes mellitus wi thout complication, without long-term current use of insulin Medical History Morbid obesity Medical History Abnormal menses Surgical History Hysteroscopy 2017 Surgical History Cervical mass removed per [employer] Dr. Sierra siddiqui 06/15/18 Goals Section No Information Health Concerns No Information MEDICAL EQUIPMENT No Information MENTAL STATUS No Information FUNCTIONAL STATUS No Information ASSESSMENTS Encounter Date Diagnosis Assessment Notes Treatment Notes Treatm ent Clinical Notes Jan, Hypertension, per pt, controlled unspecified type on current meds (ICD-10 - I10) doxazosin was only as needed for a dental procedure. currently not taking f/u in 2 weeks for BP check per pt, home readings <140/90 s allergic to ROYAL Inhibtors (lip swelling) Jan, Uncontrolled type 2 last a1c of 6.5 in diabetes mellitus Sep 2019 without complication, refill current med without long-term and test strips current use of (will fax to insulin (ICD-10 - pharmacy) E11.65) f/u in 2 weeks for labs to recheck a1c and microalbumin Jan, Morbid obesity healthy diet and (ICD-10 - E66.01) excerise Jan, Cervical mass (ICD-10 As seen on no concerns or - N88.8) pelvic u/s and compliants CT scan of abdomen/pelvis with contrast during ER visit at [facility] on 05/18/18. Jan, Iron deficiency currently on no anemia, unspecified meds or iron deficiency supplements anemia type (ICD-10 - f/u in 2 weeks D50.9) Jan, Mixed hyperlipidemia f/u lipid panel in (ICD-10 - E78.2) two weeks Jan, Thrombocytosis secondary to iron (ICD-10 - D47.3) def anemia f/u in two weeks Jan, Other Clinical Notes: Total time spent by provider during this virtual visit was 45 minutes. Also, time was spent counseling and coordinating care including but not limited to discussion of test results, diagnostic or treatment recommendations, prognosis, risks and benefits of management options, instructions, education, compliance and or risk reduction. PLAN OF TREATMENT Medication Medication Name Sig Start Date Stop Date One Touch Verio n/s one strip finger prick once a day May, 20 for 90 days Amlodipine Besylate 10 MG 1 tablet Orally Once daily for 90 days Blood Glucose Test Strip As directed (DISPENSE TESTING STRIPS June, FORMULARY TO INSURANCE) as directed Test BS once daily for 90 days Doxazosin Mesylate 1 MG as directed Orally 1 tablet once June, daily prn as directed Januvia 50 MG 1 tablet Orally Once a day for 90 days Bystolic 10 MG 1 tablet Orally Once a day for 90 days Lancets - as directed (dispense lancets June, formulary to insuarnace) subcutaneous Test BS once daily Hydrochlorothiazide 25 MG 1 tablet in the morning Orally Once daily for 90 days Treatment Notes Assessment Notes Clinical Notes Hypertension, unspecified type per pt, controlled on current medsdoxazosin was only as needed for a dental procedure. currently not takingf/u in 2 weeks for BP checkper pt, home readings <140/90sallergic to ROYAL Inhibtors (lip swelling) Uncontrolled type 2 diabetes last a1c of 6.5 in Sep 2019refi ll mellitus without complication, current med and test strips ( will without long-term current use of fax to pharmacy)f/u in 2 we eks for insulin labs to recheck a1c and microalbumin Morbid obesity healthy diet and excerise Cervical mass no concerns or compliants Iron deficiency anemia, unspecified currently on no meds or iron deficiency anemia type supplementsf/u in 2 weeks Mixed hyperlipidemia f/u lipid panel in two weeks Thrombocytosis secondary to iron def anemiaf/u in two weeks Treatment Notes Test Name Order Date Lipid Panel 2020-01-21 Iron and TIBC 2020-01-21 Thyroid Panel With TSH 2020-01-21 Ferritin, Serum 2020-01-21 Microalbumin, Random Urine 2020-01-21 Hemoglobin A1c 2020-01-21 Comp. Metabolic Panel (14) (CMP) 2020-01-21 CBC With Differential/Platelet 2020-01-21 Next Appt Details 2 Weeks Reason:labs, BP check Provider Name:Latia Carbajal, 2020-02-01 0 8:00:00 AM, [address], [place], [address], Follow Up:2 Weekslabs, BP check Insurance Providers Payer Name Payer Address Payer Insured Patient Coverage Cover age End Phone Name Relationship to Start Date Ld e Insured [employer] [id number] [phone] Dayanara [id number] [id number]
[2020-01-22 11:02] VITALS: O2SAT 94
[2020-01-22 11:59] VITALS: BP 130/75; TEMP 98
--- NOTE | 2020-01-22 12:07 | OP ---
Date of Procedure: 01/22/2020 Surgeon: Darcie Davis MD Preoperative Diagnosis: Menorrhagia (AUB-O). Postoperative Diagnosis: Menorrhagia (AUB-O). Procedures Performed: Hysteroscopy, dilation and curettage, and insertion of Mirena IUD. Anesthesia: MAC plus paracervical block. Specimens: Endometrial curettings. Complications: No complications. Drains: No drains. Patient's Condition: Stable. Findings: Uterus anteflexed, 8.5 cm was sounding length. Cervix stenotic from her LEEP procedure in 2010. She has had 2 pregnancies and 2 vaginal deliveries, 1 of which was . The cervix had t o be dilated in order for me to get into curetting her. Adequate curettings were obtained. Uterine cavity was empty and mostly unremarkable endometrium. Indications: The patient is a -hjko-vml 2, para 2, presents with heavy bleeding. This has been managed with endometrial sampling in 2017, 2018. The last time she had the procedure, there was glandular crowding, but no atypia or malignancy. After discussing with the pathologist and confirmation, she was treated with oral contraceptives. Bleeding is not well controlled, so decided to use the Mirena LNG-IUS system. This is known to work well in patients with endometrial tissue th ickening or even patients with atypia. All this was discussed with the patient. Benefits and risks were discussed including an alternative of a hysterectomy. The patient wanted to proceed with LNG-IU S system. So, first initial sampling prior to placement of this was very important and this was disc ussed with the patient and she was consented for a hysteroscopic evaluation followed by endometrial s ampling and then placement of an IUD at the same time for treatment of her bleeding. Description Of Procedure: She was consented, brought to the OR, taken back to the operating room, pl aced in supine fashion on the operating room table, MAC was given, placed in a dorsal lithotomy posit ion. Pelvic exam was performed. Vagina and vulva prepped and draped in a sterile fashion. Speculum placed to expose the cervix. Anterior lip injected with 1% lidocaine mixed with 1:100,000 epinephri ne 5 mL and at 4 and 8 o'clock positions after holding with the Allis on the anterior lip, another 5 mL each was given. Then, the external os was identified and a SlimLine hysteroscope, 30-degree lens, normal saline used to enter the cervical canal and traversed under direct vision into the uterine ca vity. The cavity unremarkable. It was sounded under direct vision to 8.5 cm. Then, the scope was r emoved. Both tubal ostia were visualized. No endometrial lesions noted. Then, #0 endometrial curet te was used for curettings. After adequate curettage was performed and handed out for permanent path ology, then IUD was taken. It was loaded into the hand rug cleaner and cavity length set at 8.5 cm, inserted smoothly without any problems. The cervix was dilated to 14-Norwegian prior to the curettage. So, thi s helped insertion of the hand rug cleaner. IUD deployed in the usual fashion. All the instruments were rem amilcar. The strings were cut to 3 cm, vagina cleaned up. All the instrument, needle, and sponge count s were correct. The patient tolerated the procedure well. She was recovered from anesthesia in the OR and taken to Day Surgery without any problems. She has a 1-week followup pathology results appoin tment and a 1-month IUD string check and evaluation and progress of her symptoms appointment. All in structions postop were given to the patient. She was given 30 mg of Toradol prior to recovery from a nesthesia, then she will be given Tylenol orally prior to discharge. AILYN/JORDYN Voice ID: [id number] Report ID: [id number]
== END ==
LOC: OR 07:52
PROVIDERS: ATTEND Obstetrics & Gynecology
PROC: 0UH97HZ Insertion of Contraceptive Device into Uterus, Via Natural or Artificial Opening (ICD-10-PCS; 2020-01-22)
PROC: 0UDB7ZX Extraction of Endometrium, Via Natural or Artificial Opening, Diagnostic (ICD-10-PCS; principal; 2020-01-22 13:00)
PROC: 0UJD8ZZ Inspection of Uterus and Cervix, Via Natural or Artificial Opening Endoscopic (ICD-10-PCS; 2020-01-22 13:00)
DX: N92.1 Excessive and frequent menstruation with irregular cycle (principal); N88.2 Stricture and stenosis of cervix uteri; N60.19 Diffuse cystic mastopathy of unspecified breast; E28.2 Polycystic ovarian syndrome; E11.9 Type 2 diabetes mellitus without complications; I10 Essential (primary) hypertension; Z20.828 Contact with and (suspected) exposure to other viral communicable diseases
CPT/HCPCS: 81025; 88305; J1100; J2250; J2405; J2704; J3010; J7030; J7120; U0002